=== PATIENT | female | born 1935 | race Caucasian/White ===

== ENCOUNTER 2022-03-24 17:29 | Observation (INO) | payer MEDICARE ==
[2022-03-24 18:20] LABS: Basophils % (A) 0 %; Eosinophils # (A) 0.1 k/uL (0-0.7); Eosinophils % (A) 1 %; HCT 43.4 % (34.0-46.0); HGB 15.3 gm/dL (11.4-16.0); Lymphocytes # (A) 3.9 k/uL (1.0-4.8); Lymphocytes % (A) 23 %; MCH 31.8 pg (25.0-35.0); MCHC 35.3 g/dL (31.0-37.0); MCV 90.1 fL (80.0-100.0); Mean Platelet Volume 7.6; Monocytes # (A) 0.4 k/uL (0-1.0); Monocytes % (A) 2 %; Neutrophils # (A) 11.9 k/uL (1.3-7.7); Neutrophils % (A) 72 %; Platelet Count 324 k/uL (150-450); RBC 4.82 m/uL (3.80-5.40); WBC 16.7 k/uL (3.8-10.6)
[2022-03-24 18:29] LABS: Albumin 4.1 g/dL (3.5-5.0); Calcium 9.5 mg/dL (8.4-10.2); Potassium 3.5 mmol/L (3.5-5.1); Total Bilirubin 0.7 mg/dL (0.2-1.3); Total Protein 6.4 g/dL (6.3-8.2)
--- NOTE | 2022-03-24 18:34 | XR ---
EXAMINATION TYPE: XR chest 2V DATE OF EXAM: 03/24/2022 COMPARISON: NONE HISTORY: Short of breath TECHNIQUE: 2 views FINDINGS: There is no heart failure nor confluent pneumonic infiltrate. Costophrenic angles are clear . There are no hilar masses. Thoracic aorta is atheromatous. IMPRESSION: No active cardiopulmonary disease. Normal heart.
[2022-03-24 19:03] VITALS: RESP 18
[2022-03-24] MEDS ORDERED: SODIUM CHLORIDE 0.9% 1,000 ML IV ONE (19:18)
--- NOTE | 2022-03-24 19:18 | ED ---
General Adult HPI - General Chief complaint: Shortness of Breath Stated complaint: pneumonia Time Seen by Provider: 03/24/22 17:30 Source: patient, RN notes reviewed, old records reviewed Mode of arrival: EMS Limitations: no limitations - History of Present Illness Initial comments: This is an 86-year-old female presents emergency Department complaining that she's had a cough for over a week. Patient states she's been on Augmentin and steroids and hasn't gotten any better. Patient states she still having a productive cough and she feels short of breath and extremely weak. Patient denies any chest pain or palpitations. Patient denies any lightheadedness or dizziness. Patient denies any abdominal pain patient denies nausea vomiting diarrhea. Patient denies any swelling to the legs or calf tenderness. - Related Data Home Medications Medication Instructions Recorded Confirmed Albuterol Sulfate [Albuterol 2 puff PO RT-QID 03/24/22 03/24/22 Sulfate Hfa] Ascorbic Acid [Vitamin C] 500 mg PO BID 03/24/22 03/24/22 Aspirin EC [Ecotrin Low Dose] 81 mg PO DAILY 03/24/22 03/24/22 Benazepril/Hydrochlorothiazide 1 tab PO DAILY 03/24/22 03/24/22 [Benazepril-Hctz 10-12.5 mg Tab] Cholecalciferol [Vitamin D3 (25 50 mcg PO DAILY 03/24/22 03/24/22 Mcg = 1000 Iu)] [place]-3/Dha/Epa/Fish Oil [Fish Oil 1 cap PO HS 03/24/22 03/24/22 1,000 mg Softgel] Simvastatin [Zocor] 40 mg PO HS 03/24/22 03/24/22 hydroCHLOROthiazide [Hydrodiuril] 25 mg PO DAILY 03/24/22 03/24/22 traZODone HCL [Desyrel] 50 mg PO HS 03/24/22 03/24/22 Allergies Allergy/AdvReac Type Severity Reaction Status Date / Time No Known Allergies Allergy Verified 03/24/22 19:00 Review of Systems ROS Statement: Those systems with pertinent positive or pertinent negative responses have been documented in the HPI. ROS Other: All systems not noted in ROS Statement are negative. Past Medical History Past Medical History: No Reported History History of Any Multi-Drug Resistant Organisms: None Reported Past Surgical History: Cholecystectomy Past Psychological History: No Psychological Hx Reported Smoking Status: Current every day smoker Past Alcohol Use History: Occasional Past Drug Use History: None Reported General Exam - General Exam Comments Initial Comments: GENERAL: Patient is well-developed and well-nourished. Patient is nontoxic and well-hydrated and is in mild distress. ENT: Neck is soft and supple. No significant lymphadenopathy is noted. Oropharynx is clear. Moist mucous membranes. Neck has full range of motion without eliciting any pain. EYES: The sclera were anicteric and conjunctiva were pink and moist. Extraocular movements were intact and pupils were equal round and reactive to light. Eyelids were unremarkable. PULMONARY: Unlabored respirations. Good breath sounds bilaterally. No audible rales rhonchi or wheezing was noted. CARDIOVASCULAR: There is a regular rate and rhythm without any murmurs gallops or rubs. ABDOMEN: Soft and nontender with normal bowel sounds. SKIN: Skin is clear with no lesions or rashes and otherwise unremarkable. NEUROLOGIC: Patient is alert and oriented x3. Cranial nerves II through XII are grossly intact. Motor and sensory are also intact. Normal speech, volume and content. Symmetrical smile. MUSCULOSKELETAL: Normal extremities with adequate strength and full range of motion. No lower extremity swelling or edema. No calf tenderness. LYMPHATICS: No significant lymphadenopathy is noted PSYCHIATRIC: Normal psychiatric evaluation. Limitations: no limitations Course Vital Signs 03/24/22 03/24/22 17:32 19:00 Temperature 97.4 F L Pulse Rate 88 86 Respiratory 20 18 Rate Blood Pressure 116/57 117/58 O2 Sat by Pulse 91 L 94 L Oximetry Medical Decision Making - Medical Decision Making I interpreted the chest x-ray. Chest x-ray showed no infiltrates or pleural effusions Patient's COVID came back positive. Patient was oxygenating at 91% on room air so I admitted the patient. I spoke with some physicians agreed to admit the patient admitted the patient wrote admitting orders. - Lab Data Result diagrams: 03/24/22 18:05 03/24/22 18:05 Lab Results 03/24/22 03/24/22 03/24/22 Range/Units 18:05 18:05 18:05 WBC 16.7 H (3.8-10.6) k/uL RBC 4.82 (3.80-5.40) m/uL Hgb 15.3 (11.4-16.0) gm/dL Hct 43.4 (34.0-46.0) % MCV 90.1 (80.0-100.0) fL MCH 31.8 (25.0-35.0) pg MCHC 35.3 (31.0-37.0) g/dL RDW 12.0 (11.5-15.5) % Plt Count 324 (150-450) k/uL MPV 7.6 Neutrophils % 72 % Lymphocytes % 23 % Monocytes % 2 % Eosinophils % 1 % Basophils % 0 % Neutrophils # 11.9 H (1.3-7.7) k/uL Lymphocytes # 3.9 (1.0-4.8) k/uL Monocytes # 0.4 (0-1.0) k/uL Eosinophils # 0.1 (0-0.7) k/uL Basophils # 0.0 (0-0.2) k/uL Sodium 132 L (137-145) mmol/L Potassium 3.5 (3.5-5.1) mmol/L Chloride 100 (98-107) mmol/L Carbon Dioxide 22 (22-30) mmol/L Anion Gap 10 mmol/L BUN 53 H (7-17) mg/dL Creatinine 1.35 H (0.52-1.04) mg/dL Est GFR (CKD-EPI)AfAm 41 (>60 ml/min/1.73 sqM) Est GFR (CKD-EPI)NonAf 36 (>60 ml/min/1.73 sqM) Glucose 138 H (74-99) mg/dL Plasma Lactic Acid Srinivasa 2.5 H* (0.7-2.0) mmol/L Calcium 9.5 (8.4-10.2) mg/dL Total Bilirubin 0.7 (0.2-1.3) mg/dL AST 29 (14-36) U/L ALT 31 (4-34) U/L Alkaline Phosphatase 60 (38-126) U/L Total Protein 6.4 (6.3-8.2) g/dL Albumin 4.1 (3.5-5.0) g/dL Coronavirus (PCR) (Not Detectd) 03/24/22 Range/Units 18:13 WBC (3.8-10.6) k/uL RBC (3.80-5.40) m/uL Hgb (11.4-16.0) gm/dL Hct (34.0-46.0) % MCV (80.0-100.0) fL MCH (25.0-35.0) pg MCHC (31.0-37.0) g/dL RDW (11.5-15.5) % Plt Count (150-450) k/uL MPV Neutrophils % % Lymphocytes % % Monocytes % % Eosinophils % % Basophils % % Neutrophils # (1.3-7.7) k/uL Lymphocytes # (1.0-4.8) k/uL Monocytes # (0-1.0) k/uL Eosinophils # (0-0.7) k/uL Basophils # (0-0.2) k/uL Sodium (137-145) mmol/L Potassium (3.5-5.1) mmol/L Chloride (98-107) mmol/L Carbon Dioxide (22-30) mmol/L Anion Gap mmol/L BUN (7-17) mg/dL Creatinine (0.52-1.04) mg/dL Est GFR (CKD-EPI)AfAm (>60 ml/min/1.73 sqM) Est GFR (CKD-EPI)NonAf (>60 ml/min/1.73 sqM) Glucose (74-99) mg/dL Plasma Lactic Acid Srinivasa (0.7-2.0) mmol/L Calcium (8.4-10.2) mg/dL Total Bilirubin (0.2-1.3) mg/dL AST (14-36) U/L ALT (4-34) U/L Alkaline Phosphatase (38-126) U/L Total Protein (6.3-8.2) g/dL Albumin (3.5-5.0) g/dL Coronavirus (PCR) Detected A (Not Detectd) Disposition Clinical Impression: COVID-19 Disposition: ADMITTED IP TO THIS HOSP Referrals: Hector Khalil MD [Primary Care Provider] - 1-2 days Time of Disposition: 19:18
[2022-03-24] MEDS ORDERED: dexAMETHasone 2 MG TAB PO STA (19:19)
--- NOTE | 2022-03-25 00:33 | P.HPIM ---
History of Present Illness H&P Date: 03/24/22 The patient is an 86-year-old female with a PMH of hypertension and hyperlipidemia who had presented to the emergency room with complaints of cough. The patient was very confused at the time of interview, oriented only to self, due to which the history was obtained from the chart and from ED physician. The patient had reportedly been on Augmentin and steroids for a productive cough and shortness of breath which had not improved her symptoms. She however had denied experiencing chest discomfort, palpitations, lightheadedness, or dizziness. She also denied lower extremity swelling or pain. At time of interview, she reported feeling okay and had no active complaints Chest x-ray in the emergency room was unremarkable. Laboratory evaluation was remarkable for leukocytosis of 16.7, BUN 53, creatinine 1.35, lactic acid 2.5, and duron virus PCR positive. Review of systems: Unable to complete due to mental status. Physical examination: General: non toxic, no distress, appears at stated age, overweight Derm: no unusual rashes/lesions, warm Head: atraumatic, normocephalic, symmetric Eyes: EOMI, no lid lag, anicteric sclera, pupils equal round reactive to light ENT: Nose and ears atraumatic Neck: No cervical lymphadenopathy, trachea midline, supple Mouth: no lip lesion, mucus membranes moist Cardiovascular: S1S2 reg, no murmur, positive dorsalis pedis pulse bilateral, no edema Lungs: CTA bilateral, no rhonchi, no rales, no accessory muscle use Abdominal: soft, nontender to palpation, no guarding Ext: muscle strength 4 out of 5 in all 4 extremities grossly, no gross muscle atrophy, no contractures, Neuro: CN II-XI grossly intact, no gross focal neuro deficits Psych: Oriented only to self, appropriate affect believes she is in her apartment Assessment/plan Acute hypoxic respiratory failure, likely secondary to COVID 19 pneumonia -Continue the Decadron -Zinc, vitamin C, vitamin D -Pulmonary consult -Follow up blood cultures -Gentle IV hydration -Follow up pro calcitonin levels Kidney injury, acute versus chronic -Continue gentle IV hydration -Hold patient's antihypertensives Lactic acidosis -Monitor for resolution Chronic conditions: Hypertension, hyperlipidemia -Continue with home meds DVT prophylaxis -Heparin subcu The patient is admitted with an anticipated less than 2 midnight stay for evaluation of COVID CODE STATUS: Full Code Discussed with: Patient Anticipated discharge date: in am Anticipated discharge place: Home Past Medical History Past Medical History: No Reported History History of Any Multi-Drug Resistant Organisms: None Reported Past Surgical History: Cholecystectomy Past Psychological History: No Psychological Hx Reported Smoking Status: Current every day smoker Past Alcohol Use History: Occasional Past Drug Use History: None Reported - Past Family History Father Family Medical History: Unable to Obtain (Due to mental status) Medications and Allergies Home Medications Medication Instructions Recorded Confirmed Type Albuterol Sulfate [Albuterol 2 puff PO RT-QID 03/24/22 03/24/22 History Sulfate Hfa] Ascorbic Acid [Vitamin C] 500 mg PO BID 03/24/22 03/24/22 History Aspirin EC [Ecotrin Low Dose] 81 mg PO DAILY 03/24/22 03/24/22 History Benazepril/Hydrochlorothiazide 1 tab PO DAILY 03/24/22 03/24/22 History [Benazepril-Hctz 10-12.5 mg Tab] Cholecalciferol [Vitamin D3 (25 50 mcg PO DAILY 03/24/22 03/24/22 History Mcg = 1000 Iu)] [place]-3/Dha/Epa/Fish Oil [Fish Oil 1 cap PO HS 03/24/22 03/24/22 History 1,000 mg Softgel] Simvastatin [Zocor] 40 mg PO HS 03/24/22 03/24/22 History hydroCHLOROthiazide [Hydrodiuril] 25 mg PO DAILY 03/24/22 03/24/22 History traZODone HCL [Desyrel] 50 mg PO HS 03/24/22 03/24/22 History Allergies Allergy/AdvReac Type Severity Reaction Status Date / Time No Known Allergies Allergy Verified 03/24/22 19:00 Physical Exam Vitals: Vital Signs Temp Pulse Pulse Resp BP BP Pulse Ox 03/24/22 20:49 98.8 F 83 18 123/73 94 L 03/24/22 19:00 86 18 117/58 94 L 03/24/22 17:32 97.4 F L 88 20 116/57 91 L Intake and Output 03/24/22 03/24/22 03/24/22 06:59 14:59 22:59 Other: Weight 89.358 kg Results CBC & Chem 7: 03/24/22 18:05 03/24/22 18:05 Labs: Abnormal Lab Results - Last 24 Hours (Table) 03/24/22 03/24/22 03/24/22 Range/Units 18:05 18:05 18:05 WBC 16.7 H (3.8-10.6) k/uL Neutrophils # 11.9 H (1.3-7.7) k/uL Sodium 132 L (137-145) mmol/L BUN 53 H (7-17) mg/dL Creatinine 1.35 H (0.52-1.04) mg/dL Glucose 138 H (74-99) mg/dL Plasma Lactic Acid Srinivasa 2.5 H* (0.7-2.0) mmol/L Coronavirus (PCR) (Not Detectd) 03/24/22 Range/Units 18:13 WBC (3.8-10.6) k/uL Neutrophils # (1.3-7.7) k/uL Sodium (137-145) mmol/L BUN (7-17) mg/dL Creatinine (0.52-1.04) mg/dL Glucose (74-99) mg/dL Plasma Lactic Acid Srinivasa (0.7-2.0) mmol/L Coronavirus (PCR) Detected A (Not Detectd)
[2022-03-25 07:56] VITALS: BP 111/68; PULSE 66; TEMP 95.9
[2022-03-25] MEDS ORDERED: HEPARIN SODIUM,PORCINE/PF 5,000 UNIT/0.5 ML SYRINGE SQ SCH (08:00)
[2022-03-25] MEDS ORDERED: ZINC SULFATE 220 MG CAP PO SCH (09:00)
[2022-03-25] MEDS ORDERED: ASCORBIC ACID 500 MG TAB PO SCH (09:00)
[2022-03-25] MEDS ORDERED: dexAMETHasone 2 MG TAB PO SCH (09:00)
[2022-03-25] MEDS ORDERED: ASPIRIN 81 MG PO SCH (09:00)
[2022-03-25] MEDS ORDERED: CHOLECALCIFEROL 125 MCG (5000 IU) TABLET PO SCH (09:00)
[2022-03-25 10:59] LABS: HCT 39.3 % (37.2-46.3); HGB 14.2 g/dL (12.0-15.0); MCH 31.7 pg (27.0-32.0); MCHC 36.1 g/dL (32.0-37.0); MCV 87.7 fL (80.0-97.0); Mean Platelet Volume 9.9 fL (9.5-12.2); NRBC Per 100 WBC 0 /100 WBCS (0.0-0.0); Platelet Count 280 X 10*3/uL (140-440); RBC 4.48 X 10*6/uL (4.10-5.20); RDW 11.9 % (11.5-14.5); WBC 10.93 X 10*3/uL (4.50-10.00)
[2022-03-25 11:22] LABS: African American GFR (CKD) 59.1 (60.0-200.0); Anion Gap 11.6 mmol/L (10.00-18.00); BUN/Creat Ratio 41.9 Ratio (12.00-20.00); Blood Urea Nitrogen 41.9 mg/dL (9.0-27.0); Calcium 9.4 mg/dL (8.7-10.3); Carbon Dioxide 20.4 mmol/L (20.0-27.5)
--- NOTE | 2022-03-25 12:04 | P.CNPUL ---
History of Present Illness Consult date: 03/25/22 Requesting physician: Mey Gonzalez Reason for consult: cough Chief complaint: Cough, congestion History of present illness: This is a very pleasant 86-year-old female patient who is a poor historian. She was brought into the emergency room yesterday with ongoing issues with cough. She was being treated with Augmentin and steroids in the outpatient setting without much improvement. She is feeling short of breath and weak. She has a history of hypertension, vitamin D deficiency, hyperlipidemia, chronic tobacco dependence. Chest x-ray shows no acute pulmonary process. White count 16.7. Hemoglobin 15.3. Sodium 132. Potassium 3.5. BUN 53. Creatinine 1.35. Lactic acid 2.5. Chronic virus by PCR positive. She is seen today in consultation on the regular medical floor. She is currently sitting up in bed. Awake and alert. Confused to time and place. She is maintaining good O2 saturations in the mid 90s on room air. She's been afebrile. Hemodynamically stable. She d oes have crackles in the bilateral bases. She was initiated on Decadron, vitamin supplements, normal saline at 75 ML's per hour. Follow-up lab work reveals a white count of 10.9. BUN of 42. Creatinine 1.0. Lactic acid 1.1. Review of Systems ROS unobtainable: due to mental status Past Medical History Past Medical History: No Reported History History of Any Multi-Drug Resistant Organisms: None Reported Past Surgical History: Cholecystectomy Past Psychological History: No Psychological Hx Reported Smoking Status: Current every day smoker Past Alcohol Use History: Occasional Past Drug Use History: None Reported - Past Family History Father Family Medical History: Unable to Obtain (Due to mental status) Medications and Allergies Home Medications Medication Instructions Recorded Confirmed Type Albuterol Sulfate [Albuterol 2 puff PO RT-QID 03/24/22 03/24/22 History Sulfate Hfa] Ascorbic Acid [Vitamin C] 500 mg PO BID 03/24/22 03/24/22 History Aspirin EC [Ecotrin Low Dose] 81 mg PO DAILY 03/24/22 03/24/22 History Benazepril/Hydrochlorothiazide 1 tab PO DAILY 03/24/22 03/24/22 History [Benazepril-Hctz 10-12.5 mg Tab] Cholecalciferol [Vitamin D3 (25 50 mcg PO DAILY 03/24/22 03/24/22 History Mcg = 1000 Iu)] [place]-3/Dha/Epa/Fish Oil [Fish Oil 1 cap PO HS 03/24/22 03/24/22 History 1,000 mg Softgel] Simvastatin [Zocor] 40 mg PO HS 03/24/22 03/24/22 History traZODone HCL [Desyrel] 50 mg PO HS 03/24/22 03/24/22 History Benzonatate [Tessalon Perles] 100 mg PO TID PRN #30 capsule 03/25/22 Rx Zinc Sulfate [Orazinc] 220 mg PO DAILY cap 03/25/22 Rx Allergies Allergy/AdvReac Type Severity Reaction Status Date / Time No Known Allergies Allergy Verified 03/24/22 19:00 Physical Exam Vitals: Vital Signs Temp Pulse Pulse Resp BP BP BP 03/25/22 07:00 95.9 F L 66 18 111/68 03/25/22 04:34 97.7 F 82 18 138/80 03/24/22 20:49 98.8 F 83 18 123/73 03/24/22 19:00 86 18 117/58 03/24/22 17:32 97.4 F L 88 20 116/57 Pulse Ox 03/25/22 07:00 96 03/25/22 04:34 96 03/24/22 20:49 94 L 03/24/22 19:00 94 L 03/24/22 17:32 91 L Intake and Output 03/24/22 03/25/22 03/25/22 22:59 06:59 14:59 Other: Voiding Method Toilet Toilet # Voids 1 1 # Bowel Movements 1 Weight 89.358 kg GENERAL EXAM: Alert, confused, poor historian, 86-year-old female, on room air, comfortable in no apparent distress. HEAD: Normocephalic. EYES: Normal reaction of pupils, equal size. NOSE: Clear with pink turbinates. THROAT: No erythema or exudates. NECK: No masses, no JVD. CHEST: No chest wall deformity. LUNGS: Equal air entry with crackles in the posterior bases. CVS: S1 and S2 normal with no audible murmur, regular rhythm. ABDOMEN: No hepatosplenomegaly, normal bowel sounds, no guarding or rigidity. SPINE: No scoliosis or deformity SKIN: No rashes CENTRAL NERVOUS SYSTEM: No focal deficits, tone is normal in all 4 extremities. EXTREMITIES: There is no peripheral edema. No clubbing, no cyanosis. Peripheral pulses are intact. Results - Laboratory Findings CBC and BMP: 03/25/22 06:36 03/25/22 06:36 Abnormal lab findings: Abnormal Labs 03/24/22 03/24/22 03/24/22 18:05 18:05 18:05 WBC 16.7 H Neutrophils # 11.9 H Sodium 132 L BUN 53 H Creatinine 1.35 H Est GFR (CKD-EPI)AfAm Est GFR (CKD-EPI)NonAf BUN/Creatinine Ratio Glucose 138 H Plasma Lactic Acid Srinivasa 2.5 H* Coronavirus (PCR) 03/24/22 03/25/22 03/25/22 18:13 06:36 06:36 WBC 10.93 H Neutrophils # Sodium 134 L BUN 41.9 H Creatinine Est GFR (CKD-EPI)AfAm 59.1 L Est GFR (CKD-EPI)NonAf 51.0 L BUN/Creatinine Ratio 41.90 H Glucose 149 H Plasma Lactic Acid Srinivasa Coronavirus (PCR) Detected A - Diagnostic Findings Chest x-ray: image reviewed Assessment and Plan Assessment: Dyspnea with cough and congestion, chest x-ray shows no acute pulmonary process, pro-calcitonin pending. Failed outpatient treatment COVID-19 infection with no evidence of COVID-19 pneumonia Acute renal failure secondary to dehydration secondary to above Poor historian History of hyperlipidemia History of hypertension Plan: The patient was seen and evaluated Chest x-ray, labs and medications reviewed Check a pro-calcitonin Vitamin supplements Discontinue Decadron Heparin for DVT prophylaxis Stable and on room air Cleared for discharge from the pulmonary standpoint I have personally seen and examined the patient, performed the documentation and the assessment and plan as written. Number of minutes spent on the visit: 20.
--- NOTE | 2022-03-25 14:24 | P.DS ---
Providers Date of admission: 03/24/22 19:18 Expected date of discharge: 03/25/22 Attending physician: Mey Gonzalez MD Consults: 03/25/22 00:31 Consult Physician Urgent Consulting Provider: Farshad Chi Consult Reason/Comments: COVID Do you want consulting provider notified?: Yes Primary care physician: Hector Khalil MD Hospital Course: Discharge Diagnosis: Acute COVID-19 Acute kidney injury Lactic acidosis Hypertension Dyslipidemia Leukocytosis Hospital Course: The patient is an 86-year-old female with hypertension, dementia, and hyperlipidemia who was sent to the emergency department from [facility] emergency room with complaints of cough. In the ER she underwent an extensive evaluation. Vital signs on arrival were normal. Chest x-ray in the emergency room was unremarkable. Laboratory evaluation was remarkable for leukocytosis of 16.7, BUN 53, creatinine 1.35, lactic acid 2.5, and duron virus PCR positive. Her diuretics were held. She was started on IV fluids. She was placed in observation for further monitoring. Her oxygenation status remained stable on the morning of . Her daughter was contacted and stated her mother had unknown cold exposure 2 weeks ago and had a [place] type symptoms for the last 7 days. We discussed the risks and benefits of Paxlovid therapy and due to possible duration symptoms they have elected to forego therpay. She did have some infiltrate on her chest x-ray one week ago but this has resolved. Daughter feels comfortable taking her home. She has 24 7 care at the [facility]. We discussed starting Zinc and Tessalon for her cough. They're in agreement and patient was subsequently discharged home. She'll follow up with Suraj or Dr. Cheema early next week. Patient seen and examined at bedside. She is with out complaints, no shortness of breath, no nuaseas, no vomitnig. Vital signs reviewed and stable. General: nontoxic, no distress, appears at stated age Derm: warm, dry Head: atraumatic, normocephalic, symmetric Eyes: EOMI, no lid lag, anicteric sclera Mouth: no lip lesion, mucus membranes moist Cardiovascular: S1S2 reg, no murmur, positive posterior tibial pulse bilateral, Lungs: CTA bilateral, no rhonchi, no rales , no accessory muscle use Abdominal: soft, nontender to palpation, no guarding, no appreciable organomegaly Ext: no gross muscle atrophy, no edema, no contractures Neuro: CN II-XI grossly intact, no focal neuro deficits Psych: Alert, oriented to self, appropriate affect A total of 37 minutes of time were spent preparing this complex discharge summary. Patient was discharged on 03/25/22. Plan - Discharge Summary New Discharge Prescriptions: New Zinc Sulfate [Orazinc] 220 mg PO DAILY cap Benzonatate [Tessalon Perles] 100 mg PO TID PRN #30 capsule PRN Reason: Cough Continue traZODone HCL [Desyrel] 50 mg PO HS Aspirin EC [Ecotrin Low Dose] 81 mg PO DAILY Ascorbic Acid [Vitamin C] 500 mg PO BID Cholecalciferol [Vitamin D3 (25 Mcg = 1000 Iu)] 50 mcg PO DAILY Benazepril/Hydrochlorothiazide [Benazepril-Hctz 10-12.5 mg Tab] 1 tab PO DAILY [place]-3/Dha/Epa/Fish Oil [Fish Oil 1,000 mg Softgel] 1 cap PO HS Albuterol Sulfate [Albuterol Sulfate Hfa] 2 puff PO RT-QID Simvastatin [Zocor] 40 mg PO HS Discontinued hydroCHLOROthiazide [Hydrodiuril] 25 mg PO DAILY Discharge Medication List Albuterol Sulfate [Albuterol Sulfate Hfa] 2 puff PO RT-QID 03/24/22 [History] Ascorbic Acid [Vitamin C] 500 mg PO BID 03/24/22 [History] Aspirin EC [Ecotrin Low Dose] 81 mg PO DAILY 03/24/22 [History] Benazepril/Hydrochlorothiazide [Benazepril-Hctz 10-12.5 mg Tab] 1 tab PO DAILY 03/24/22 [History] Cholecalciferol [Vitamin D3 (25 Mcg = 1000 Iu)] 50 mcg PO DAILY 03/24/22 [History] [place]-3/Dha/Epa/Fish Oil [Fish Oil 1,000 mg Softgel] 1 cap PO HS 03/24/22 [History] Simvastatin [Zocor] 40 mg PO HS 03/24/22 [History] traZODone HCL [Desyrel] 50 mg PO HS 03/24/22 [History] Benzonatate [Tessalon Perles] 100 mg PO TID PRN #30 capsule 03/25/22 [Rx] Zinc Sulfate [Orazinc] 220 mg PO DAILY cap 03/25/22 [Rx] Follow up Appointment(s)/Referral(s): Erich Cheema MD [REFERRING] - 1 Week Patient Instructions/Handouts: COVID-19 (Coronavirus Disease 2019) (DC) Activity/Diet/Wound Care/Special Instructions: Activity: as tolerated Diet: regular Wound Care: [] Special Instructions: [] Discharge Disposition: HOME SELF-CARE
[2022-03-25] MEDS ORDERED: ATORVASTATIN 20 MG TAB PO SCH (21:00)
[2022-03-25] MEDS ORDERED: traZODone HCL 50 MG TAB PO SCH (21:00)
== END 2022-03-25 12:10 | disposition home or self-care (01) ==
LOC: EC 17:29 → 6NMEDSUR 19:18
PROVIDERS: ADMIT Family Medicine; ATTEND Family Medicine
DX: U07.1 COVID-19 (principal); J96.01 Acute respiratory failure with hypoxia; F03.90 Unspecified dementia, unspecified severity, without behavioral disturbance, psychotic disturbance, mood disturbance, and anxiety; E86.0 Dehydration; N17.9 Acute kidney failure, unspecified; I70.0 Atherosclerosis of aorta; I10 Essential (primary) hypertension; E78.5 Hyperlipidemia, unspecified; E87.20 Acidosis, unspecified; E55.9 Vitamin D deficiency, unspecified; F17.200 Nicotine dependence, unspecified, uncomplicated; D72.829 Elevated white blood cell count, unspecified; Z79.899 Other long term (current) drug therapy; Z79.82 Long term (current) use of aspirin; Z90.49 Acquired absence of other specified parts of digestive tract
CPT/HCPCS: 96372; 99285; 36415; 80053; 80048; 83605; 85025; 85027; 87040; 84145; 87635; 71046; G0378 ×2; J8540; J1644

== ENCOUNTER 2024-01-12 20:31 | Observation (INO) | payer MEDICARE ==
--- NOTE | 2024-01-12 22:10 | CT ---
EXAMINATION TYPE: CT brain wo con DATE OF EXAM: 01/12/2024 COMPARISON: None HISTORY: 88-year-old female with TIA, weakness TECHNIQUE: Examination was done in axial plane without intravenous contrast. Coronal and sagittal r econstructions performed. CT DLP: 1138.9 mGycm Automated exposure control for dose reduction was used. FINDINGS: There is no evidence of acute intracranial hemorrhage, acute ischemic changes, mass, mass-effect, or extra-axial fluid collection. There is no effacement of cerebral sulci or basal subarachnoid cister ns. There is no hydrocephalus. There is no midline shift. [place]-white matter distinction is preserv ed. Extensive patient motion limiting the evaluation. There is moderate generalized supratentorial volum e loss. 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 Mild ventricular prominence likely due to central cerebral atrophy. Paranasal sinuses and mastoid air cells are pneumatized. IMPRESSION: 1. Motion degraded exam. 2. Mild to moderate generalized atrophy. 3. 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 4. No definite acute intracranial abnormality seen. If symptoms persist, follow-up CT or MRI.
--- NOTE | 2024-01-12 22:16 | ED ---
General Adult HPI - General Chief complaint: Neuro Symptoms/Deficit Stated complaint: HTN Time Seen by Provider: 01/12/24 20:48 Source: patient, family, EMS Mode of arrival: EMS Limitations: no limitations - History of Present Illness Initial comments: Dictation was produced using [employer] dictation software. please excuse any grammatical, word or spelling errors. Chief Complaint: 88-year-old female presents emergency department with TIA History of Present Illness: Patient is 88-year-old female has history of stroke. She has also history of dementia. She was at a dinner libertarian with her family when all of a sudden she started to be unresponsive breathing sonorously with a facial droop. She apparently was like this for 5 minutes. She was rushed to the emergency department. Patient wants to regain consciousness had episode of vomiting and returned back to baseline. Patient does not recall the events that transpired. She does have a history dementia. Family states that patient is very forgetful. Patient Nu[place] any symptoms at this time. The ROS documented in this emergency department record has been reviewed and confirmed by me. Those systems with pertinent positive or negative responses have been documented in the HPI. All other systems are other negative and/or noncontributory. - Related Data Home Medications Medication Instructions Recorded Confirmed Albuterol Sulfate [Albuterol 2 puff PO RT-QID 03/24/22 03/24/22 Sulfate Hfa] Ascorbic Acid [Vitamin C] 500 mg PO BID 03/24/22 03/24/22 Aspirin EC [Ecotrin Low Dose] 81 mg PO DAILY 03/24/22 03/24/22 Benazepril/Hydrochlorothiazide 1 tab PO DAILY 03/24/22 03/24/22 [Benazepril-Hctz 10-12.5 mg Tab] Cholecalciferol [Vitamin D3 (25 50 mcg PO DAILY 03/24/22 03/24/22 Mcg = 1000 Iu)] [place]-3/Dha/Epa/Fish Oil [Fish Oil 1 cap PO HS 03/24/22 03/24/22 1,000 mg Softgel] Simvastatin [Zocor] 40 mg PO HS 03/24/22 03/24/22 traZODone HCL [Desyrel] 50 mg PO HS 03/24/22 03/24/22 Previous Rx's Medication Instructions Recorded Benzonatate [Tessalon Perles] 100 mg PO TID PRN #30 capsule 03/25/22 Zinc Sulfate [Orazinc] 220 mg PO DAILY cap 03/25/22 Allergies Allergy/AdvReac Type Severity Reaction Status Date / Time No Known Allergies Allergy Verified 01/12/24 20:39 Review of Systems ROS Statement: Those systems with pertinent positive or pertinent negative responses have been documented in the HPI. ROS Other: All systems not noted in ROS Statement are negative. Past Medical History Past Medical History: COPD, CVA/TIA, Dementia, Hypertension History of Any Multi-Drug Resistant Organisms: None Reported Past Surgical History: Cholecystectomy, Orthopedic Surgery Additional Past Surgical History / Comment(s): lumbar Past Psychological History: No Psychological Hx Reported Smoking Status: Current every day smoker Past Alcohol Use History: Occasional Past Drug Use History: None Reported - Past Family History Father Family Medical History: Unable to Obtain (Due to mental status) General Exam - General Exam Comments Initial Comments: PHYSICAL EXAM: General Impression: Alert and oriented x3/4, not in acute distress HEENT: Normocephalic atraumatic, extra-ocular movements intact, pupils equal and reactive to light bilaterally, mucous membranes moist. Cardiovascular: Heart regular rate and rhythm Chest: Able to complete full sentences, no retractions, no tachypnea Abdomen: abdomen soft, non-tender, non-distended, no organomegaly Musculoskeletal: Pulses present and equal in all extremities, no peripheral yoly ma Motor: no focal deficits noted Neurological: CN II-XII grossly intact, no focal motor or sensory deficits noted Skin: Intact with no visualized rashes Psych: Normal affect and mood Limitations: no limitations Course Vital Signs 01/12/24 01/12/24 20:32 21:38 Temperature 97.5 F L Pulse Rate 59 L 97 Respiratory 18 18 Rate Blood Pressure 142/40 138/78 O2 Sat by Pulse 95 96 Oximetry EKG Findings - EKG Comments: EKG Findings:: My EKG interpretation: Ventricular rate 107, sinus tachycardia, right branch block. 05/17/1933, QRS 116, QTc 406. No [place] prolongation, no QTC prolongation, no ST or T-wave changes noted. Overall, this EKG is unremarkable Medical Decision Making - Medical Decision Making Was pt. sent in by a medical professional or institution (, PA, STOPPER SETTER, urgent care, hospital, or [facility]...) When possible be specific @ -No Did you speak to anyone other than the patient for history (EMS, parent, family, police, friend...)? What history was obtained from this source @ -family as described above Did you review nursing and triage notes (agree or disagree)? Why? @ -I reviewed and agree with nursing and triage notes Were old charts reviewed (outside hosp., previous admission, EMS record, old EKG, old radiological studies, urgent care reports/EKG's, [facility] records)? Report findings @ -No old charts were reviewed Differential Diagnosis (chest pain, altered mental status, abdominal pain women, abdominal pain men, vaginal bleeding, musculoskeletal, weakness, fever, dyspnea, syncope, headache, dizziness, GI bleed, back pain, seizure, CVA, palpatations, mental health)? @ - Differential CVA: Ischemic stroke, hemorrhagic stroke, brain tumor, atypical migraine, Wernicke's encephalopathy, seizure, multiple sclerosis, meningitis, encephalitis, h ypoglycemia, Guillain-Jarvis, electrolytes disturbance, myasthenia gravis.... This is not meant to be an all-inclusive list EKG interpreted by me (3pts min.). @ -See above X-rays interpreted by me (1pt min.). @ -None done CT interpreted by me (1pt min.). @ -CT brain shows no acute processes. Evidence of old infarct U/S interpreted by me (1pt. min.). @ -None done What testing was considered but not performed or refused? (CT, X-rays, U/S, labs)? Why? @ -None What meds were considered but not given or refused? Why? @ -None Was smoking cessation discussed for >3mins.? @ -No Were there social determinants of health that impacted care today? How? (Homelessness, low income, unemployed, alcoholism, drug addiction, transportation, low edu. Level, literacy, decrease access to med. care, correction, rehab)? @ -No Was there de-escalation of care discussed even if they declined (Discuss DNR or withdrawal of care, Hospice)? DNR status @ -No What co-morbidities impacted this encounter? (DM, HTN, Smoking, COPD, CAD, Cancer, CVA, ARF, Chemo, Hep., AIDS, mental health diagnosis, sleep apnea, morbid obesity)? @ -None Was patient admitted / discharged? Hospital course, mention meds given and route , prescriptions, significant lab abnormalities, going to OR and other pertinent info. @ -88-year-old female presents emergency department for episode of suspected seizure versus syncope versus TIA signs upon arrival are within acceptable limits. CT scan shows no acute processes. Patient at baseline at the bedside. Patient be admitted consultation to neurology. Did you discuss the management of the patient with other professionals (professionals i.e. , PA, STOPPER SETTER, lab, RT, psych nurse, social organization professor, insurance claims assistant, teacher, fire prevention officer, vocational case manager)? Give summary @ -case discussed with Dr. Santiago who is agreeable for admission. Was critical care preformed (if so, how long)? @ -No Undiagnosed new problem with uncertain prognosis? @ -No Drug Therapy requiring intensive monitoring for toxicity (Heparin, Nitro, Insulin, Cardizem)? @ -No Were any procedures done? @ -No Diagnosis/symptom? Acute, or Chronic, or Acute on Chronic? Uncomplicated (without systemic symptoms) or Complicated (systemic symptoms)? @ -TIA event Side effects of treatment? @ -No Exacerbation, Progression, or Severe Exacerbation? @ -No Poses a threat to life or bodily function? How? (Chest pain, [place], [place], pneumonia, PE, COPD, DKA, ARF, appy, cholecystitis, CVA, Diverticulitis, Homicidal, Suicidal, threat to staff... and all critical care pts) @ -yes - Lab Data Result diagrams: 01/12/24 22:35 01/12/24 22:35 Lab Results 01/12/24 01/12/24 Range/Units 22:35 22:35 WBC 10.0 (3.8-10.6) k/uL RBC 4.33 (3.80-5.40) m/uL Hgb 13.9 (11.4-16.0) gm/dL Hct 40.5 (34.0-46.0) % MCV 93.6 (80.0-100.0) fL MCH 32.2 (25.0-35.0) pg MCHC 34.4 (31.0-37.0) g/dL RDW 13.7 (11.5-15.5) % Plt Count 187 (150-450) k/uL MPV 7.4 Neutrophils % 68 % Lymphocytes % 26 % Monocytes % 3 % Eosinophils % 0 % Basophils % 1 % Neutrophils # 6.8 (1.3-7.7) k/uL Lymphocytes # 2.6 (1.0-4.8) k/uL Monocytes # 0.3 (0-1.0) k/uL Eosinophils # 0.0 (0-0.7) k/uL Basophils # 0.1 (0-0.2) k/uL Sodium 136 L (137-145) mmol/L Potassium 4.0 (3.5-5.1) mmol/L Chloride 103 (98-107) mmol/L Carbon Dioxide 27 (22-30) mmol/L Anion Gap 6 mmol/L BUN 23 H (7-17) mg/dL Creatinine 1.53 H (0.52-1.04) mg/dL Est GFR (CKD-EPI)AfAm 35 (>60 ml/min/1.73 sqM) Est GFR (CKD-EPI)NonAf 30 (>60 ml/min/1.73 sqM) Glucose 119 H (74-99) mg/dL Calcium 9.7 (8.4-10.2) mg/dL Magnesium 1.7 (1.6-2.3) mg/dL Total Bilirubin 0.5 (0.2-1.3) mg/dL AST 25 (14-36) U/L ALT 19 (4-34) U/L Alkaline Phosphatase 71 (38-126) U/L Total Protein 6.6 (6.3-8.2) g/dL Albumin 4.1 (3.5-5.0) g/dL Disposition Clinical Impression: Syncope Disposition: ADMITTED IP TO THIS HOSP Condition: Fair Referrals: Hector Khalil MD [Primary Care Provider] - 1-2 days Decision Time: 23:20
[2024-01-12 22:59] LABS: Basophils # (A) 0.1 k/uL (0-0.2); Basophils % (A) 1 %; Eosinophils % (A) 0 %; HCT 40.5 % (34.0-46.0); HGB 13.9 gm/dL (11.4-16.0); Lymphocytes # (A) 2.6 k/uL (1.0-4.8); Lymphocytes % (A) 26 %; MCH 32.2 pg (25.0-35.0); MCHC 34.4 g/dL (31.0-37.0); MCV 93.6 fL (80.0-100.0); Mean Platelet Volume 7.4; Monocytes # (A) 0.3 k/uL (0-1.0); Monocytes % (A) 3 %; Neutrophils # (A) 6.8 k/uL (1.3-7.7); Neutrophils % (A) 68 %; Platelet Count 187 k/uL (150-450); RBC 4.33 m/uL (3.80-5.40); RDW 13.7 % (11.5-15.5)
[2024-01-12 23:15] LABS: ALT 19 U/L (4-34); AST 25 U/L (14-36); African American GFR (CKD) 35 (>60 ml/min/1.73 sqM); Albumin 4.1 g/dL (3.5-5.0); Alkaline Phosphatase 71 U/L (38-126); Anion Gap 6 mmol/L; Blood Urea Nitrogen 23 mg/dL (7-17); Calcium 9.7 mg/dL (8.4-10.2); Carbon Dioxide 27 mmol/L (22-30); Chloride 103 mmol/L (98-107); Glucose 119 mg/dL (74-99); Magnesium 1.7 mg/dL (1.6-2.3); Non-African American GFR(CKD) 30 (>60 ml/min/1.73 sqM); Sodium 136 mmol/L (137-145); Total Bilirubin 0.5 mg/dL (0.2-1.3); Total Protein 6.6 g/dL (6.3-8.2)
[2024-01-12] MEDS ORDERED: NALOXONE 0.4 MG/ML 1 ML VIAL IV PRN (23:17)
[2024-01-12 23:46] LABS: INR 0.9 (<1.2); Partial Thromboplastin Time 23.6 sec (22.0-30.0); Prothrombin Time 10.1 sec (10.0-12.5)
--- NOTE | 2024-01-13 01:57 | P.HPIM ---
History of Present Illness H&P Date: 01/13/24 Patient is a 88-year-old female with a PMH of dementia, resident of [facility], with history of CVAs, COPD, hypertension, and hyperlipidemia who was brought to the emergency room by family members after an episode of unresponsiveness. The history is obtained by the patient's daughters at the bedside who are also serving as the patient's primary caregiver. They report that the patient was sitting with them at the dinner table earlier tonight when she suddenly became unresponsive. Her eyes were open although she was not responding to any stimuli and was noted to have a right-sided facial droop. The patient gradually became more responsive after 5 minutes and had essentially returned to her baseline over the next few hours, especially at the time of interview. The daughter reports that this is in line with her prior episodes of CVA where she would become catatonic and unresponsive. There was no reports of shaking movements, urinary incontinence, foaming at the mouth, or tongue biting. The patient did appear to be fatigued after regaining consciousness. The patient at the time of interview had no active complaints and reported feeling well. Denied experiencing weakness, numbness, tingling, headaches, visual disturbances. Also denied chest discomfort, shortness breath, fever, chills, cough, nausea, vomiting, abdominal pain, diarrhea. CT brain in the emergency room revealed findings of an old right MCA infarct with encephalomalacia with no acute intracranial abnormalities noted. Laboratory evaluation revealed BUN of 23 with creatinine 1.53 (previously 1.0 on 03/25/2022), and sodium 136. ED documentation reviewed and case discussed with ED provider. Review of systems: Pertinent positives and negatives as discussed in HPI, a complete review of systems was performed and all other systems are negative. Physical examination: Vital signs reviewed General: non toxic, no distress, appears at stated age, normal weight Derm: no unusual rashes/lesions, warm Head: atraumatic, normocephalic, symmetric Eyes: EOMI, no lid lag, anicteric sclera, pupils equal round reactive to light ENT: Nose and ears atraumatic Neck: No cervical lymphadenopathy, trachea midline, supple Mouth: no lip lesion, mucus membranes moist Cardiovascular: S1S2 reg, no murmur, positive dorsalis pedis pulse bilateral, no edema Lungs: CTA bilateral, no rhonchi, no rales, no accessory muscle use Abdominal: soft, nontender to palpation, no guarding Ext: muscle strength 5 out of 5 in all 4 extremities grossly, no gross muscle atrophy, no contractures, Neuro: CN II-XI grossly intact, no gross focal neuro deficits Psych: Alert, oriented only to person and place, not oriented to time Assessment: Episode of unresponsiveness with right facial droop, TIA versus less likely seizure Kidney injury, acute versus chronic Chronic conditions: COPD, hypertension, hyperlipidemia Imaging: CT brain in the emergency room revealed findings of an old right MCA infarct with encephalomalacia with no acute intracranial abnormalities noted. Data Review: Laboratory evaluation revealed BUN of 23 with creatinine 1.53 (previously 1.0 on 03/25/2022), and sodium 136. Plan: Neurology consulted campus monitor Obtain echocardiogram Continue with aspirin and statin Fall precautions Neurochecks PT and speech consult Monitor BMP Resume home medications once reconciled DVT prophylaxis: Lovenox subcu The patient is admitted with an anticipated fewer than 2 midnight stay for evaluation of unresponsiveness CODE STATUS: Full Code Discussed with: Patient Anticipated discharge place: [facility] Past Medical History Past Medical History: COPD, CVA/TIA, Dementia, Hypertension History of Any Multi-Drug Resistant Organisms: None Reported Past Surgical History: Cholecystectomy, Orthopedic Surgery Additional Past Surgical History / Comment(s): lumbar Past Psychological History: No Psychological Hx Reported Smoking Status: Current every day smoker Past Alcohol Use History: Occasional Past Drug Use History: None Reported - Past Family History Father Family Medical History: Unable to Obtain (Due to mental status) Medications and Allergies Home Medications Medication Instructions Recorded Confirmed Type Albuterol Sulfate [Albuterol 2 puff PO RT-QID 03/24/22 03/24/22 History Sulfate Hfa] Ascorbic Acid [Vitamin C] 500 mg PO BID 03/24/22 03/24/22 History Aspirin EC [Ecotrin Low Dose] 81 mg PO DAILY 03/24/22 03/24/22 History Benazepril/Hydrochlorothiazide 1 tab PO DAILY 03/24/22 03/24/22 History [Benazepril-Hctz 10-12.5 mg Tab] Cholecalciferol [Vitamin D3 (25 50 mcg PO DAILY 03/24/22 03/24/22 History Mcg = 1000 Iu)] [place]-3/Dha/Epa/Fish Oil [Fish Oil 1 cap PO HS 03/24/22 03/24/22 History 1,000 mg Softgel] Simvastatin [Zocor] 40 mg PO HS 03/24/22 03/24/22 History traZODone HCL [Desyrel] 50 mg PO HS 03/24/22 03/24/22 History Benzonatate [Tessalon Perles] 100 mg PO TID PRN #30 capsule 03/25/22 Rx Zinc Sulfate [Orazinc] 220 mg PO DAILY cap 03/25/22 Rx Allergies Allergy/AdvReac Type Severity Reaction Status Date / Time No Known Allergies Allergy Verified 01/12/24 20:39 Physical Exam Vitals: Vital Signs Temp Pulse Resp BP Pulse Ox 01/12/24 21:38 97 18 138/78 96 01/12/24 20:32 97.5 F L 59 L 18 142/40 95 Intake and Output 01/12/24 01/12/24 01/13/24 14:59 22:59 06:59 Other: Weight 61.235 kg Results CBC & Chem 7: 01/12/24 22:35 01/12/24 22:35 Labs: Abnormal Lab Results - Last 24 Hours (Table) 01/12/24 Range/Units 22:35 Sodium 136 L (137-145) mmol/L BUN 23 H (7-17) mg/dL Creatinine 1.53 H (0.52-1.04) mg/dL Glucose 119 H (74-99) mg/dL
[2024-01-13 06:29] LABS: HCT 38.5 % (34.0-46.0); HGB 13.2 gm/dL (11.4-16.0); MCH 32.1 pg (25.0-35.0); MCHC 34.2 g/dL (31.0-37.0); MCV 93.8 fL (80.0-100.0); Platelet Count 161 k/uL (150-450); RBC 4.11 m/uL (3.80-5.40); RDW 13.1 % (11.5-15.5); WBC 8.7 k/uL (3.8-10.6)
[2024-01-13 06:38] LABS: African American GFR (CKD) 39 (>60 ml/min/1.73 sqM); Anion Gap 8 mmol/L; Blood Urea Nitrogen 24 mg/dL (7-17); Calcium 9.5 mg/dL (8.4-10.2); Carbon Dioxide 23 mmol/L (22-30); Chloride 105 mmol/L (98-107); Glucose 120 mg/dL (74-99); Non-African American GFR(CKD) 34 (>60 ml/min/1.73 sqM); Potassium 3.7 mmol/L (3.5-5.1); Sodium 136 mmol/L (137-145)
[2024-01-13] MEDS: SODIUM CHLORIDE 0.9% 1,000 ML IV SCH (06:47)
[2024-01-13] MEDS: ENOXAPARIN 40 MG/0.4 ML SYRINGE SQ SCH (08:22)
[2024-01-13] MEDS: ASPIRIN 81 MG PO SCH (14:41)
[2024-01-13] MEDS: levETIRAcetam 500 MG TAB PO SCH (14:41)
--- NOTE | 2024-01-13 14:48 | P.CNNES ---
History of Present Illness Consult date: 01/13/24 Requesting physician: Chad Arce Reason for Consult: syncope vs seizure vs tia History of Present Illness: This is an 88 year-old woman with history of 2 strokes, moderate dementia since strokes, seizure-like episodes and not on antiseizure medication who presents to the emergency department because of yesterday she had episode of staring off, not responding. Her two daughters and gericare aide are at bedside who provide history. Per the daughters they stated that yesterday patient had episode of staring off and not responding and that was brief and was fatigue after the episode. Since the episode yesterday she has been having intermittent shaking of the arms that is nonrhtyhmic but with these shaking episode she is responding. They stated the patient has seizure-like episodes in the past and are brief and is not on antiseizure medication and they feel last episode was 6 years ago. Per gericare aide where patient reside in an independent facility but has help, she has brief episode of shaking of the left arm. She has two Strokes and last stroke was 10 years ago and since stroke has moderate dementia. They stated she has stage 5 dementia. She is oriented to self and place at baseline. She feeds self but need assistance with showering. She has intact remote memory. She has sundowning. She was evaluated by neurologist in past. She is on ASA 81mg daily. She was in dementia medication in past but was stopped and per daughter she has not had any further decline in memory since off. Some of the work-up during this hospital visit consisted of: CBC with diff is unremarkable. Creatning is 1.53 I reviewed rest of lab work-up. CT head old right MCA territory infarct with encephalomalacia. Motion degraded exam. No definitive acute intracranial abnormality seen. I personally reviewed and agree with report. Review of Systems The positive and negative as per HPI. Past Medical History Past Medical History: COPD, CVA/TIA, Dementia, Hypertension History of Any Multi-Drug Resistant Organisms: None Reported Past Surgical History: Cholecystectomy, Orthopedic Surgery Additional Past Surgical History / Comment(s): lumbar Past Psychological History: No Psychological Hx Reported Smoking Status: Current every day smoker Past Alcohol Use History: Occasional Past Drug Use History: None Reported - Past Family History Father Family Medical History: Unable to Obtain (Due to mental status) Medications and Allergies Home Medications Medication Instructions Recorded Confirmed Type Aspirin EC [Ecotrin Low Dose] 81 mg PO HS 03/24/22 01/13/24 History Cholecalciferol [Vitamin D3 (25 25 mcg PO DAILY 03/24/22 01/13/24 History Mcg = 1000 Iu)] [place]-3/Dha/Epa/Fish Oil [Fish Oil 1 cap PO HS 03/24/22 01/13/24 History 1,000 mg Softgel] Simvastatin [Zocor] 40 mg PO HS 03/24/22 01/13/24 History traZODone HCL [Desyrel] 50 mg PO HS 03/24/22 01/13/24 History Budesonide [Pulmicort] 2 ml INHALATION RT-BID 01/13/24 01/13/24 History Cyanocobalamin (Vitamin B-12) 1,000 mcg PO DAILY 01/13/24 01/13/24 History [Vitamin B-12] Ipratropium-Albuterol Nebulize 3 ml INHALATION RT-QID 01/13/24 01/13/24 History [Duoneb 0.5 mg-3 mg/3 ml Soln] amLODIPine BESYLATE/BENAZEPRIL 1 cap PO DAILY 01/13/24 01/13/24 History [Lotrel 2.5-10 MG] hydroCHLOROthiazide 25 mg PO DAILY 01/13/24 01/13/24 History Allergies Allergy/AdvReac Type Severity Reaction Status Date / Time No Known Allergies Allergy Verified 01/13/24 07:38 Physical Examination - Vital Signs Vital Signs: Vital Signs Temp Pulse Pulse Resp BP BP Pulse Ox 01/13/24 11:10 98.7 F 01/13/24 08:17 98.3 F 87 20 152/81 96 01/13/24 04:16 98.6 F 101 H 18 163/74 97 01/13/24 03:07 98.1 F 91 16 127/77 99 01/12/24 21:38 97 18 138/78 96 01/12/24 20:32 97.5 F L 59 L 18 142/40 95 Intake and Output 01/12/24 01/13/24 01/13/24 22:59 06:59 14:59 Intake Total 540 Balance 540 Intake: Oral 540 Other: # Voids 2 Weight 61.235 kg General Is not in acute distress HEENT is supple Neuro: Somewhat limited The patient is awake alert oriented to self stated she is in the hospital. She was able to name her daughters name correctly as well as her caregivers name. She is following simple commands. No aphasia from limited language Pupils are round equal reactive to light. Pupils are round 3 mm bilaterally. Visual baker are full to confrontation. Extraocular movements intact no nystagmus. No facial weakness. No dysarthria Motor the strength is 5 out of 5 throughout no resting tremor. Sensation is normal to touch Cerebellar normal [id number] Reflex is deferred because of her cooperation Plantars are mute. Results - Laboratory Findings CBC and BMP: 01/13/24 06:04 01/13/24 06:04 Abnormal Lab Findings: Abnormal Labs 01/12/24 01/13/24 22:35 06:04 Sodium 136 L 136 L BUN 23 H 24 H Creatinine 1.53 H 1.38 H Glucose 119 H 120 H Assessment and Plan Assessment: This is an 88-year-old woman with history of 2 strokes in the past, dementia, history of seizure-like activity and is not on any antiseizure medication who presented emergency department because of episode of staring off not responding which was brief then was fatigued afterwards and ever since patient has been having intermittent tremor of the upper extremities Likely breakthrough seizure. Patient has a history of seizure-like episodes and is not on any antiseizure medication. In the past per family members patient has episodes of unresponsiveness staring off that is brief and per the caregiver she has intermittent episodes of left upper extremity shaking. She is not on anti-epileptic drugs. History of 2 strokes in the past and the last 1 according to family member was [address] of the head shows right MCA encephalomalacia Underlying moderate dementia and her dementia is likely vascular from her strokes Patient is oriented to self and place Hypertension COPD Plan: Started the patient on Keppra 500 mg twice daily. Notified the patient's family members about the side effects of Keppra that can cause mood irritability and the family members were and acceptance of starting the medication. If she has any side effects of medication then consider Lamictal or Vimpat I ordered routine EEG and MRI of the brain I ordered vitamin B12, folate, TSH, ammonia level Restart the patient's home medication of aspirin 81 mg daily Seizure precautions seizure pads 2D echo is ordered by the primary team is pending Continue neurochecks Per family does not want to have the patient be started on dementia medication since she was started in the past and they stated that ever since she has been off they have not seen any worsening decline of her dementia. Will defer the rest of the medical management to primary and other special Discussed with patient rest of the family members. Thank for the consultation Dr. Rubin will resume neurology service tomorrow A.M. Time with Patient: Greater than 30
--- NOTE | 2024-01-13 17:43 | CA ---
Transthoracic Echo Report Name: Leslie Marcano Age: 88 Gender: F : 1935 Exam Date: 01/13/2024 13:48 Exam Location: [facility] Ht (in): 62 Wt (lb): 135 Ordering Physician: Adam Santiago MD Attending/Referring Phys: Routing Equipment Tender Rehana Brock RDCS Procedure CPT: Indications: tia Cardiac Hx: Technical Quality: Technically difficult study Contrast 1: Total Dose (mL): Contrast 2: Total Dose (mL): MEASUREMENTS (Male / Female) Normal Values 2D ECHO LVOT Diameter 2.1 cm LV Diastolic Volume MOD BP 39.7 cm??? 67 - 155 / 56 - 104 cm??? LV Systolic Volume MOD BP 17.2 cm??? 22 - 58 / 19 - 49 cm??? LV Ejection Fraction MOD BP 56.7 % >= 55 % LV Cardiac Index MOD BP 1217.0 cm???/min???m??? LV Diastolic Volume MOD 4C 37.7 cm??? LV Systolic Volume MOD 4C 15.2 cm??? LV Ejection Fraction MOD 4C 59.7 % LV Cardiac Index MOD 4C 1215.4 cm???/min???m??? LV Diastolic Length 4C 7.2 cm LV Systolic Length 4C 6.4 cm LV Diastolic Volume MOD 2C 42.0 cm??? LV Systolic Volume MOD 2C 19.6 cm??? LV Ejection Fraction MOD 2C 53.2 % LV Cardiac Index MOD 2C 1206.4 cm???/min???m??? LV Diastolic Length 2C 7.2 cm LV Systolic Length 2C 6.4 cm LA Volume 18.6 cm??? 18 - 58 / 22 - 52 cm??? LA Volume Index 11.3 cm???/m??? 16 - 28 cm???/m??? DOPPLER AV Peak Velocity 105.3 cm/s AV Peak Gradient 4.4 mmHg AV Mean Velocity 80.3 cm/s AV Mean Gradient 2.7 mmHg AV Velocity Time Integral 21.9 cm LVOT Peak Velocity 100.0 cm/s LVOT Peak Gradient 4.0 mmHg LVOT Velocity Time Integral 17.9 cm LVOT Stroke Volume 63.9 cm??? LVOT Stroke Volume Index 39.5 ml/m??? LVOT Cardiac Index 3452.3 cm???/min???m??? AV Area Cont Eq vti 2.9 cm??? AV Area Cont Eq pk 3.4 cm??? MV Peak Velocity 130.7 cm/s MV Peak Gradient 6.8 mmHg MV Mean Velocity 85.4 cm/s MV Mean Gradient 3.4 mmHg MV Velocity Time Integral 17.3 cm MV Area PHT 5.2 cm??? Mitral E Point Velocity 62.8 cm/s Mitral A Point Velocity 102.7 cm/s Mitral E to A Ratio 0.6 MV Deceleration Time 145.6 ms FINDINGS Left Ventricle Left ventricular ejection fraction is estimated at 55-60 %. Left ventricular cavity size normal. Left ventricular wall thickness normal. No obvious regional wall motion abnormalities. Right Ventricle Right ventricle not well visualized. Unable to estimate the right ventricular systolic pressure. Right Atrium Right atrium not well visualized. Left Atrium Normal left atrial size. Mitral Valve Structurally normal mitral valve. No mitral stenosis, regurgitation or prolapse. Aortic Valve Aortic valve not well visualized. No aortic valve stenosis or regurgitation. Tricuspid Valve Structurally normal tricuspid valve. No tricuspid stenosis. No tricuspid regurgitation. Pulmonic Valve Pulmonic valve not well visualized. Pericardium No pericardial effusion. Echo free space anterior to the right ventricle likely represents a fat pad. Aorta Aortic annulus normal. CONCLUSIONS Left ventricular ejection fraction 55-60% No mitral regurgitation No tricuspid regurgitation Previewed by: Dr. Zeferino Conn DO (Electronically Signed) Final Date: 13 January 2024 17:42
[2024-01-13 20:16] LABS: Vitamin B12 >3600.0 pg/mL (200.0-944.0)
--- NOTE | 2024-01-13 20:48 | EEG ---
ELECTROENCEPHALOGRAM REPORT CLINICAL HISTORY: This is an 88-year-old woman with a history of stroke, seizure-like episode, who presents to the emergency department because of blank stare, confusion, and tremors. The video EEG is obtained to evaluate for seizure epileptiform activity. RELEVANT MEDICATIONS: The patient is not on any antiseizure medication. EEG TYPE: A routine 21-channel EEG with video using the 10/20 electrode placement system. DESCRIPTION: Wakefulness and drowsiness are obtained. During awake state, the posterior-dominant rhythm consists of [id number] voltage of 8.5 to 9 hertz activity that is well modulated, and well sustained. There is no physiological stage 2 sleep architecture. There is no focal slowing. Interictal and ictal is none. ACTIVATION PROCEDURE: Photic stimulation did not evoke a posterior driving response. There is no abnormality during the photic stimulation. Hyperventilation is not performed. CLINICAL INTERPRETATION: This is a normal routine EEG. There is no focal slowing, epileptiform discharge, or seizure on the EEG. A normal routine EEG does not rule out underlying epilepsy. Clinical correlation is recommended. MMODL / IJN: [id number] /
[2024-01-14 07:56] VITALS: BP 154/81; PULSE 88; RESP 15; TEMP 97.6
[2024-01-14] MEDS: ENOXAPARIN 30 MG/0.3 ML SYRINGE SQ SCH (09:35)
--- NOTE | 2024-01-14 14:53 | P.DS ---
Providers Date of admission: 01/12/24 23:19 Expected date of discharge: 01/14/24 Attending physician: Adam Santiago MD Consults: 01/12/24 23:17 Consult Physician Routine Consulting Provider: Layton Hooks Consult Reason/Comments: syncope vs seizure vs tia Do you want consulting provider notified?: Yes Primary care physician: [facility] Course: 88-year-old female with a PMH of dementia, resident of [facility], with history of CVAs, COPD, hypertension, and hyperlipidemia who was brought to the emergency room by family members after an episode of unresponsiveness. The history is obtained by the patient's daughters at the bedside who are also serving as the patient's primary caregiver. They report that the patient was sitting with them at the dinner table earlier tonight when she suddenly became unresponsive. Her eyes were open although she was not responding to any stimuli and was noted to have a right-sided facial droop. The patient gradually became more responsive after 5 minutes and had essentially returned to her baseline over the next few hours, especially at the time of interview. The daughter reports that this is in line with her prior episodes of CVA where she would become catatonic and unresponsive. There was no reports of shaking movements, urinary incontinence, foaming at the mouth, or tongue biting. The patient did appear to be fatigued after regaining consciousness. The patient at the time of interview had no active complaints and reported feeling well. Denied experiencing weakness, numbness, tingling, headaches, visual disturbances. Also denied chest discomfort, shortness breath, fever, chills, cough, nausea, vomiting, abdominal pain, diarrhea. CT brain in the emergency room revealed findings of an old right MCA infarct with encephalomalacia with no acute intracranial abnormalities noted. Laboratory evaluation revealed BUN of 23 with creatinine 1.53 (previously 1.0 on 03/25/2022), and sodium 136. patient was admitted, she was evaluated by neurology who suspected seizures, started her on keppra 500mg p.o bid. Patient did have EEG that did not show epileptiform discharges. Had an echocardiogram that was okay. She had two Strokes and last stroke was 10 years ago and since stroke has moderate dementia. She is oriented to self and place at baseline. SHe will need MRI brain, which can be done outpatient according to neuro. She did not have any recurrent episodes of seizures during the hospitalization. She will be discharged in a stable condition. MRI slip provided. WIll need outpateint neuro follow up. This was communicated with career development engineer. Pateint was seen and examined on the day of discharge 01/13 TIme for discharge 35 min Patient Condition at Discharge: Fair Plan - Discharge Summary Discharge Rx Participant: No New Discharge Prescriptions: No Action traZODone HCL [Desyrel] 50 mg PO HS Aspirin EC [Ecotrin Low Dose] 81 mg PO HS Cholecalciferol [Vitamin D3 (25 Mcg = 1000 Iu)] 25 mcg PO DAILY Ipratropium-Albuterol Nebulize [Duoneb 0.5 mg-3 mg/3 ml Soln] 3 ml INHALATION RT-QID amLODIPine BESYLATE/BENAZEPRIL [Lotrel 2.5-10 MG] 1 cap PO DAILY [place]-3/Dha/Epa/Fish Oil [Fish Oil 1,000 mg Softgel] 1 cap PO HS Simvastatin [Zocor] 40 mg PO HS Cyanocobalamin (Vitamin B-12) [Vitamin B-12] 1,000 mcg PO DAILY hydroCHLOROthiazide 25 mg PO DAILY Budesonide [Pulmicort] 2 ml INHALATION RT-BID Discharge Medication List Aspirin EC [Ecotrin Low Dose] 81 mg PO HS 03/24/22 [History] Cholecalciferol [Vitamin D3 (25 Mcg = 1000 Iu)] 25 mcg PO DAILY 03/24/22 [History] [place]-3/Dha/Epa/Fish Oil [Fish Oil 1,000 mg Softgel] 1 cap PO HS 03/24/22 [History] Simvastatin [Zocor] 40 mg PO HS 03/24/22 [History] traZODone HCL [Desyrel] 50 mg PO HS 03/24/22 [History] Budesonide [Pulmicort] 2 ml INHALATION RT-BID 01/13/24 [History] Cyanocobalamin (Vitamin B-12) [Vitamin B-12] 1,000 mcg PO DAILY 01/13/24 [History] Ipratropium-Albuterol Nebulize [Duoneb 0.5 mg-3 mg/3 ml Soln] 3 ml INHALATION RT-QID 01/13/24 [History] amLODIPine BESYLATE/BENAZEPRIL [Lotrel 2.5-10 MG] 1 cap PO DAILY 01/13/24 [History] hydroCHLOROthiazide 25 mg PO DAILY 01/13/24 [History] Follow up Appointment(s)/Referral(s): Hector Khalil MD [Primary Care Provider] - 1-2 days
--- NOTE | 2024-01-14 15:35 | US ---
EXAMINATION TYPE: US carotid duplex BILAT DATE OF EXAM: 01/14/2024 COMPARISON: NONE CLINICAL INDICATION: Female, 88 years old with history of seizure vs TIA; possible TIA TECHNIQUE: Carotid duplex ultrasound examination. Indirect Doppler criteria was utilized. FINDINGS: EXAM MEASUREMENTS: RIGHT: Peak Systolic Velocity (PSV) cm/sec ----- Right CCA: 69.5 ----- Right ICA: 69.8 ----- Right ECA: 130.0 ICA/CCA ratio: 1.0 RIGHT: End Diastole cm/sec ----- Right CCA: 13.0 ----- Right ICA: 8.6 ----- Right ECA: 0.0 LEFT: Peak Systolic Velocity (PSV) cm/sec ----- Left CCA: 67.4 ----- Left ICA: 96.4 ----- Left ECA: 112.0 ICA/CCA ratio: 1.4 LEFT: End Diastole cm/sec ----- Left CCA: 5.3 ----- Left ICA: 9.2 ----- Left ECA: 0.0 VERTEBRALS (direction of flow): Right Vertebral: Antegrade Left Vertebral: Antegrade Rhythm: Normal PASSENGER SERVICE MANAGER NOTES: Mild heterogeneous plaque with no significant stenosis seen IMPRESSION: Less than 50% stenosis of bilateral carotid bifurcations. Criteria for Assigning % of Stenosis / Diameter reduction (Estimation based on the indirect measurements of the internal carotid artery velocities (ICA PSV). 1. Normal (no stenosis)=ICA PSV < 125 cm/s: ratio < 2.0: ICA EDV<40 cm/s. 2. Less than 50% stenosis=ICA PSV < 125 cm/s: ratio < 2.0: ICA EDV<40 cm/s. 3. 50 to 69% stenosis=ICA PSV of 125 to 230 cm/s: ration 2.0 ? 4.0: ICA EDV 40-100 cm/s. 4. Greater than 70% stenosis to near occlusion= ICA PSV > 230 cm/s: ratio > 4.0: ICA EDV > 100 cm/s. 5. Near occlusion= ICA PSV velocities may be low or undetectable: variable ratio and ICA EDV. 6. Total occlusion=unable to detect flow.
--- NOTE | 2024-01-15 11:28 | P.PN ---
Subjective Progress Note Date: 01/14/24 Patient was initially seen by Dr. Layton Hooks. Please refer to his note for details. Patient is a 88-year-old female with history of CVA, seizure, not on any antiepileptic medication, dementia, who presents because of episode of staring off, not responding and tremor. Dr. Hooks started patient on Keppra 5 mg twice daily. EEG was normal. MRI brain has been ordered. Patient at present is sitting comfortably in the recliner. Patient's caregiver was also present. Patient does have history of dementia. Per caregiver, patient walks with a walker, because she gets winded easily, and uses it for st eadiness. Caregiver mentioned that prior to arrival, patient had an episode, in which she was doing dinner, sitting with sister, and her head went to the side, mouth droop and she was having tremor of the hand, stared off. She was not talking for about 5 minutes. She does have history of CVA twice in the past. Some of the work-up during this hospital visit consisted of: CBC with diff is unremarkable. Creatning is 1.53 I reviewed rest of lab work-up. CT head old right MCA territory infarct with encephalomalacia. Motion degraded exam. No definitive acute intracranial abnormality seen. I personally reviewed and agree with report. Objective - Vital Signs Vital signs: Vital Signs Temp 97.6 F 01/14/24 07:00 Pulse 88 01/14/24 07:00 Resp 15 01/14/24 07:00 BP 154/81 01/14/24 07:00 Pulse Ox 95 01/14/24 07:00 FiO2 Intake & Output 01/13/24 01/14/24 01/14/24 18:59 06:59 18:59 Intake Total 120 240 118 Output Total 1 Balance 120 239 118 Weight 61.235 kg Intake: Oral 120 240 118 Output: Urine 1 Other: # Voids 1 - Exam Patient is alert and awake in no distress. Patient knows her date of 1935. She believes that she is in [facility] in [facility]. Patient used to live in [place] in the past but not anymore. She says something about [place]. Patient does not know the current month or the year. Speech and language functions appears normal. No obvious aphasia. Muscle strength is normal. Sensory to touch is equal. No ataxia. - Labs CBC & Chem 7: 01/13/24 06:04 01/13/24 06:04 Labs: Abnormal Lab Results - Last 24 Hours (Table) 01/13/24 Range/Units 14:29 Vitamin B12 >3600.0 H (200.0-944.0) pg/mL Assessment and Plan Assessment: This is an 88-year-old woman with history of 2 strokes in the past, dementia, history of seizure-like activity and is not on any antiseizure medication who presented emergency department because of episode of staring off not responding which was brief then was fatigued afterwards and ever since patient has been having intermittent tremor of the upper extremities Likely breakthrough seizure. Patient has a history of seizure-like episodes and is not on any antiseizure medication. In the past per family members patient has episodes of unresponsiveness staring off that is brief and per the caregiver she has intermittent episodes of left upper extremity shaking. She is not on anti- epileptic drugs. History of 2 strokes in the past and the last 1 according to family member was [address] of the head shows right MCA encephalomalacia Underlying moderate dementia and her dementia is likely vascular from her strokes Patient is oriented to self and place Hypertension COPD Plan: Patient probably had a focal seizure, and Dr. Hooks started the patient on Keppra 500 mg twice daily. He had notified the patient's family members about t he side effects of Keppra that can cause mood irritability and the family members were and acceptance of starting the medication. If she has any side effects of medication then consider Lamictal or Vimpat EEG was normal. No focal slowing, epileptiform discharges or seizure on the EEG. Seizure precautions seizure pads 2D echo revealed normal left ventricular EF 55 to 60%. No obvious regional wall motion abnormalities. No valvular abnormalities. Carotid Doppler revealed less than 50% stenosis of bilateral carotid bifurcations. Antegrade flow in both vertebral arteries. Continue aspirin 81 mg daily and statins. Dr. Hooks has ordered MRI, which can be done as an outpatient, as patient cannot have MRI until Tuesday due to long weekend. Recommend patient follow-up with neurologist outpatient. B12 > 3600, folate 12.00, TSH 0.84, ammonia <9, all normal. Per family does not want to have the patient be started on dementia medication since she was started in the past and they stated that ever since she has been off they have not seen any worsening decline of her dementia. Neurologically clear for discharge.
== END 2024-01-14 15:53 | disposition home or self-care (01) ==
LOC: EC 20:31 → 6NMEDSUR 23:19
PROVIDERS: ADMIT Internal Medicine; ATTEND Internal Medicine
DX: R55 Syncope and collapse (principal); R56.9 Unspecified convulsions; R29.810 Facial weakness; F03.B0 Unspecified dementia, moderate, without behavioral disturbance, psychotic disturbance, mood disturbance, and anxiety; F05 Delirium due to known physiological condition; J44.9 Chronic obstructive pulmonary disease, unspecified; E78.5 Hyperlipidemia, unspecified; F17.200 Nicotine dependence, unspecified, uncomplicated; I10 Essential (primary) hypertension; Z86.73 Personal history of transient ischemic attack (TIA), and cerebral infarction without residual deficits; Z79.82 Long term (current) use of aspirin; Z79.899 Other long term (current) drug therapy
CPT/HCPCS: 36415; 70450; 80048; 80053; 82140; 82607; 82746; 83735; 84443; 84484; 85025; 85027; 85610; 85730; 93005; 93306; 93880; 95816; 96372; 99285

== ENCOUNTER 2024-03-27 12:49 | Emergency (ER) | payer MEDICARE ==
--- NOTE | 2024-03-27 13:26 | ED ---
Head Injury HPI - General Chief complaint: Head Injury Stated complaint: Fall-Head injury Time Seen by Provider: 03/27/24 13:25 Source: patient, RN notes reviewed, old records reviewed, Caregiver (friend) Mode of arrival: ambulatory Limitations: no limitations - History of Present Illness Initial comments: 88-year-old female presented to the ER with a chief complaint of a fall. Patient states she was walking into the hospital to have a Holter monitor placed today when she accidentally tripped and fell backwards hitting the back of her head. She denies loss of consciousness. No blood thinning medications. She does take baby aspirin daily. Patient denies any dizziness, lightheadedness, chest pain or shortness of breath prior to fall. Patient denies any other injuries or complaints at this time. - Related Data Home Medications Medication Instructions Recorded Confirmed Aspirin EC [Ecotrin Low Dose] 81 mg PO HS 03/24/22 03/27/24 Cholecalciferol [Vitamin D3 (25 25 mcg PO DAILY 03/24/22 03/27/24 Mcg = 1000 Iu)] [place]-3/Dha/Epa/Fish Oil [Fish Oil 1 cap PO HS 03/24/22 03/27/24 1,000 mg Softgel] Simvastatin [Zocor] 40 mg PO HS 03/24/22 03/27/24 traZODone HCL [Desyrel] 50 mg PO HS 03/24/22 03/27/24 Budesonide [Pulmicort] 2 ml INHALATION RT-BID 01/13/24 03/27/24 Cyanocobalamin (Vitamin B-12) 1,000 mcg PO DAILY 01/13/24 03/27/24 [Vitamin B-12] Ipratropium-Albuterol Nebulize 3 ml INHALATION RT-QID 01/13/24 03/27/24 [Duoneb 0.5 mg-3 mg/3 ml Soln] amLODIPine BESYLATE/BENAZEPRIL 1 cap PO DAILY 01/13/24 03/27/24 [Lotrel 2.5-10 MG] hydroCHLOROthiazide 25 mg PO DAILY 01/13/24 03/27/24 OXcarbazepine [Trileptal] 150 mg PO BID 03/27/24 03/27/24 Previous Rx's Medication Instructions Recorded levETIRAcetam [Keppra] 500 mg PO Q12HR 60 Days #120 tab 01/14/24 Allergies/Adverse reactions: Allergies Allergy/AdvReac Type Severity Reaction Status Date / Time No Known Allergies Allergy Verified 03/27/24 13:32 Review of Systems ROS Statement: Those systems with pertinent positive or pertinent negative responses have been documented in the HPI. ROS Other: All systems not noted in ROS Statement are negative. Past Medical History Past Medical History: COPD, CVA/TIA, Dementia, Hypertension History of Any Multi-Drug Resistant Organisms: None Reported Past Surgical History: Cholecystectomy, Orthopedic Surgery Additional Past Surgical History / Comment(s): lumbar Past Psychological History: No Psychological Hx Reported Smoking Status: Current every day smoker Past Alcohol Use History: Occasional Past Drug Use History: None Reported - Past Family History Father Family Medical History: Unable to Obtain (Due to mental status) General Exam Limitations: no limitations General appearance: alert, in no apparent distress Head exam: Present: atraumatic, normocephalic, normal inspection Eye exam: Present: normal appearance, PERRL, EOMI. Absent: scleral icterus, conjunctival injection, periorbital swelling Pupils: Present: normal accommodation ENT exam: Present: normal exam, normal oropharynx, mucous membranes moist Neck exam: Present: normal inspection. Absent: tenderness, meningismus, lymphadenopathy Respiratory exam: Present: normal lung sounds bilaterally. Absent: respiratory distress, wheezes, rales, rhonchi, stridor Cardiovascular Exam: Present: regular rate, normal rhythm, normal heart sounds. Absent: systolic murmur, diastolic murmur, rubs, gallop, clicks GI/Abdominal exam: Present: soft, normal bowel sounds. Absent: distended, tenderness, guarding, rebound, rigid Extremities exam: Present: normal inspection, full ROM, normal capillary refill, other (2+ bilateral dorsalis pedis/posterior tibialis and radial pulses.). Absent: tenderness, pedal edema, joint swelling, calf tenderness Back exam: Present: normal inspection Neurological exam: Present: alert, CN II-XII intact, other (ANO x 2 (patient's baseline)) Skin exam: Present: warm, dry, intact, normal color. Absent: rash Course Vital Signs 03/27/24 03/27/24 12:55 15:40 Temperature 98.5 F 98.2 F Pulse Rate 99 100 Respiratory 20 16 Rate Blood Pressure 103/68 133/65 O2 Sat by Pulse 95 97 Oximetry Medical Decision Making - Medical Decision Making Was pt. sent in by a medical professional or institution (MICHELLE Valle, DIE SETTER, urgent care, hospital, or correction...) When possible be specific @ -No Did you speak to anyone other than the patient for history (EMS, parent, family, police, friend...)? What history was obtained from this source @ -Caregiver aiding in HPI Did you review nursing and triage notes (agree or disagree)? Why? @ -I reviewed and agree with nursing and triage notes Were old charts reviewed (outside hosp., previous admission, EMS record, old EKG, old radiological studies, urgent care reports/EKG's, correction records)? Report findings @ -No old charts were reviewed Differential Diagnosis (chest pain, altered mental status, abdominal pain women, abdominal pain men, vaginal bleeding, weakness, fever, dyspnea, syncope, headache, dizziness, GI bleed, back pain, seizure, CVA, palpatations, mental health, musculoskeletal)? @ -Fracture, dislocation, contusion, hematoma, intracranial hemorrhage, concussion, abrasion, laceration this list does not like to be all-inclusive EKG interpreted by me (3pts min.). @ -None done X-rays interpreted by me (1pt min.). @ -None done CT interpreted by me (1pt min.). @ -CT brain negative for acute intracranial process. U/S interpreted by me (1pt. min.). @ -None done What testing was considered but not performed or refused? (CT, X-rays, U/S, labs)? Why? @ -None What meds were considered but not given or refused? Why? @ -None Did you discuss the management of the patient with other professionals (professionals i.e. MICHELLE Valle, DIE SETTER, lab, RT, psych nurse, adoption social worker, billet assembler, teacher, project officer, test case developer)? Give summary @ -No Was smoking cessation discussed for >3mins.? @ -No Was critical care preformed (if so, how long)? @ -No Were there social determinants of health that impacted care today? How? (Homelessness, low income, unemployed, alcoholism, drug addiction, transportation, low edu. Level, literacy, decrease access to med. care, longterm, rehab)? @ -No Was there de-escalation of care discussed even if they declined (Discuss DNR or withdrawal of care, Hospice)? DNR status @ -No What co-morbidities impacted this encounter? (DM, HTN, Smoking, COPD, CAD, Cancer, CVA, ARF, Chemo, Hep., AIDS, mental health diagnosis, sleep apnea, morbid obesity)? @ -None Was patient admitted / discharged? Hospital course, mention meds given and route, prescriptions, significant lab abnormalities, going to OR and other pertinent info. @ -Discharge. 88-year-old female presented to the ER status post fall. Patient does admit to head injury but denies loss of consciousness or blood thinning medications. History and physical exam completed. Vitals within normal limits. Patient no signs of acute distress. GCS 15. Patient AxO x2, which is patient's baseline per caregiver and sister, at bedside. Bilateral upper and lower extremities neuro vastly intact. No focal bony tenderness. Patient freely moving all extremities. No scalp hematoma or wounds noted. Due to patient's age CT brain will be completed, patient is agreeable. CT brain negative. Upon reevaluation, patient resting comfortably on stretcher no signs of acute distress. Patient is eager for discharge. Results discussed with patient, sister and caregiver, all questions answered. Patient stable for discharge at this time. Strict return parameters discussed. Patient discharged in stable condition with follow-up to PCP. Patient verbally expressed understanding and agreement with care plan. Case discussed with ED attending, . Undiagnosed new problem with uncertain prognosis? @ -No Drug Therapy requiring intensive monitoring for toxicity (Heparin, Nitro, Insulin, Cardizem)? @ -No Were any procedures done? @ -No Diagnosis/symptom? @ -Fall Acute, or Chronic, or Acute on Chronic? @ -Acute Uncomplicated (without systemic symptoms) or Complicated (systemic symptoms)? @ -Uncomplicated Side effects of treatment? @ -No Exacerbation, Progression, or Severe Exacerbation? @ -No Poses a threat to life or bodily function? How? (Chest pain, USA, SD, pneumonia, PE, COPD, DKA, ARF, appy, cholecystitis, CVA, Diverticulitis, Homicidal, Suicidal, threat to staff... and all critical care pts) @ -No - Radiology Data Radiology results: report reviewed, image reviewed Disposition Clinical Impression: Fall Disposition: HOME SELF-CARE Condition: Stable Instructions (If sedation given, give patient instructions): Fall Prevention for Older Adults (ED) Additional Instructions: Follow-up with PCP. Call cardiology to have for monitor appointment rescheduled. Return to the ER for new or worsening concerns. Is patient prescribed a controlled substance at d/c from ED?: No Referrals: Erich Cheema MD [Primary Care Provider] - 1-2 days Time of Disposition: 15:25
--- NOTE | 2024-03-27 14:44 | CT ---
EXAMINATION TYPE: CT brain wo con CT DLP: 1125.4 mGycm, Automated exposure control for dose reduction was used. DATE OF EXAM: 03/27/2024 2:38 PM COMPARISON: Prior CT Brain from 01/12/2024 . CLINICAL INDICATION:Female, 88 years old with history of fall with HI no thinners, Fall, head injury, no thinners, pain. TECHNIQUE: Brain: Multiple axial CT images of the brain were obtained without IV contrast. Sagittal reformats re viewed. FINDINGS: Brain: Extra-axial spaces: No abnormal extra-axial fluid collections. Ventricular system: Dilatation in proportion to cerebral atrophy. Cerebral parenchyma: Moderate diffuse cerebral atrophy. No acute intraparenchymal hemorrhage or mass effect. Right frontal parietotemporal watershed region encephalomalacia from prior infarct. The collins ining berkowitz-white junction is well differentiated. Scattered hypoattenuating areas are seen within the periventricular white matter. Cerebellum: Unremarkable. Mass effect: No evidence of midline shift. Intracranial vasculature: Atherosclerotic calcifications of the intracranial vessels. Soft tissues: Normal. Calvarium/osseous structures: No depressed skull fracture. Paranasal sinuses and mastoid air cells: Clear Visualized orbits: Orbital contents are intact. IMPRESSION: 1. No acute intracranial process. 2. 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 3. Moderate generalized cerebral atrophy with nonspecific white matter changes, likely secondary to c hronic small vessel ischemic disease. [facility], , 03/27/2024 2:42 PM
[2024-03-27 15:48] VITALS: BP 133/65; PULSE 100; RESP 16; TEMP 98.2
== END 2024-03-27 15:40 | disposition home or self-care (01) ==
LOC: EC 12:49
DX: S09.90XA Unspecified injury of head, initial encounter (principal); F17.200 Nicotine dependence, unspecified, uncomplicated; Z86.73 Personal history of transient ischemic attack (TIA), and cerebral infarction without residual deficits; Z90.49 Acquired absence of other specified parts of digestive tract; W01.0XXA Fall on same level from slipping, tripping and stumbling without subsequent striking against object, initial encounter; Y93.01 Activity, walking, marching and hiking
CPT/HCPCS: 70450; 99284

== ENCOUNTER 2024-04-13 13:02 | Emergency (ER) | payer MEDICARE ==
[2024-04-13 13:13] VITALS: TEMP 99.1
[2024-04-13] MEDS ORDERED: IPRATROPIUM-ALBUTEROL 3 ML NEB INHALATION STA (13:22)
[2024-04-13] MEDS: SODIUM CHLORIDE 0.9% 1,000 ML IV STA (13:48)
[2024-04-13] MEDS: ONDANSETRON 4 MG/2 ML VIAL IVP STA (13:49)
[2024-04-13] MEDS: FAMOTIDINE 20 MG/2 ML VIAL IV STA (13:51)
[2024-04-13] MEDS: methylPREDNISolone SOD SUCCI 125 MG/2 ML VIAL IV STA (13:51)
[2024-04-13 13:56] LABS: Basophils # (A) 0.1 k/uL (0-0.2); Basophils % (A) 1 %; Eosinophils # (A) 0.1 k/uL (0-0.7); Eosinophils % (A) 1 %; HCT 43.4 % (34.0-46.0); HGB 14.7 gm/dL (11.4-16.0); Lymphocytes # (A) 3.5 k/uL (1.0-4.8); Lymphocytes % (A) 36 %; MCHC 33.8 g/dL (31.0-37.0); MCV 94.5 fL (80.0-100.0); Monocytes # (A) 0.4 k/uL (0-1.0); Monocytes % (A) 4 %; Neutrophils # (A) 5.5 k/uL (1.3-7.7); Neutrophils % (A) 56 %; Platelet Count 172 k/uL (150-450); RDW 13.1 % (11.5-15.5); WBC 9.7 k/uL (3.8-10.6)
[2024-04-13 14:15] LABS: ALT 24 U/L (4-34); AST 31 U/L (14-36); African American GFR (CKD) 49 (>60 ml/min/1.73 sqM); Albumin 3.8 g/dL (3.5-5.0); Alkaline Phosphatase 122 U/L (38-126); Anion Gap 8 mmol/L; Blood Urea Nitrogen 35 mg/dL (7-17); Calcium 9.4 mg/dL (8.4-10.2); Carbon Dioxide 22 mmol/L (22-30); Chloride 105 mmol/L (98-107); Glucose 103 mg/dL (74-99); Magnesium 1.8 mg/dL (1.6-2.3); Non-African American GFR(CKD) 42 (>60 ml/min/1.73 sqM); Sodium 135 mmol/L (137-145); Total Bilirubin 0.7 mg/dL (0.2-1.3); Total Protein 6.6 g/dL (6.3-8.2)
--- NOTE | 2024-04-13 14:20 | XR ---
EXAMINATION TYPE: XR chest 2V DATE OF EXAM: 04/13/2024 COMPARISON: NONE CLINICAL INDICATION: Female, 88 years old with history of Weakness; , TECHNIQUE: XR chest 2V views of the chest. FINDINGS: Heart is enlarged and bilateral linear scarring or atelectasis. Stable nodule bilateral upper lobe li isauro related to granuloma. Atherosclerotic change aorta. Heart size normal. Diffuse osteopenia and ar thropathy of the shoulders. Degenerative change of the spine. IMPRESSION: 1. No acute process. [facility], , 04/13/2024 2:18 PM
--- NOTE | 2024-04-13 15:42 | ED ---
General Adult HPI - General Chief complaint: Shortness of Breath Stated complaint: SOB Time Seen by Provider: 04/13/24 13:10 Source: patient, family, RN notes reviewed, old records reviewed Mode of arrival: EMS Limitations: no limitations - History of Present Illness Initial comments: Patient is an 88-year-old female presents emergency department with daughter over concern for shortness of breath in the setting of chronic COPD, possible URI symptoms, as well as weakness. They also noticed that patient had a swollen lower lip as well as a possible rash on her back. Symptoms have been ongoing for days. She has been taking her normal medications however recent switch to carbamazepine. Currently completed course of doxycycline for bronchitis. Patient has a history of dementia, prior strokes, hypertension. Also history of COPD. Not normally on oxygen. Presents for further evaluation at this time. Daughter is a primary story as well as the caregiver. - Related Data Home Medications Medication Instructions Recorded Confirmed Aspirin EC [Ecotrin Low Dose] 81 mg PO HS 03/24/22 04/13/24 Cholecalciferol [Vitamin D3 (25 25 mcg PO DAILY 03/24/22 04/13/24 Mcg = 1000 Iu)] [place]-3/Dha/Epa/Fish Oil [Fish Oil 1 cap PO HS 03/24/22 04/13/24 1,000 mg Softgel] Simvastatin [Zocor] 40 mg PO HS 03/24/22 04/13/24 traZODone HCL [Desyrel] 50 mg PO HS 03/24/22 04/13/24 Budesonide [Pulmicort] 0.5 mg INHALATION RT-BID 01/13/24 04/13/24 Cyanocobalamin (Vitamin B-12) 1,000 mcg PO DAILY 01/13/24 04/13/24 [Vitamin B-12] Ipratropium-Albuterol Nebulize 3 ml INHALATION RT-QID 01/13/24 04/13/24 [Duoneb 0.5 mg-3 mg/3 ml Soln] amLODIPine BESYLATE/BENAZEPRIL 1 cap PO DAILY 01/13/24 04/13/24 [Lotrel 2.5-10 MG] hydroCHLOROthiazide 25 mg PO DAILY 01/13/24 04/13/24 OXcarbazepine [Trileptal] 75 mg PO BID 11/12/24 11/29/24 Previous Rx's Medication Instructions Recorded Famotidine 20 mg PO DAILY 21 Days #21 tab 04/13/24 predniSONE [Deltasone] 40 mg PO DAILY 5 Days #10 tab 04/13/24 Allergies Allergy/AdvReac Type Severity Reaction Status Date / Time No Known Allergies Allergy Verified 04/13/24 15:35 Review of Systems ROS Statement: Those systems with pertinent positive or pertinent negative responses have been documented in the HPI. Review of Systems: CONST: Denies fever EYES: Denies blurry vision ENT: This is nonproductive cough C/V: Denies Chest pain RESP: Denies shortness of breath GI: Denies abdominal pain : Denies dysuria SKIN: Denies rash. MSK: Denies joint pain. NEURO: Denies headache ROS Other: All systems not noted in ROS Statement are negative. Past Medical History Past Medical History: COPD, CVA/TIA, Dementia, Hypertension Additional Past Medical History / Comment(s): pneumonia History of Any Multi-Drug Resistant Organisms: None Reported Past Surgical History: Cholecystectomy, Orthopedic Surgery Additional Past Surgical History / Comment(s): lumbar Past Psychological History: No Psychological Hx Reported Smoking Status: Current every day smoker Past Alcohol Use History: Occasional Past Drug Use History: None Reported - Past Family History Father Family Medical History: Unable to Obtain (Due to mental status) General Exam - General Exam Comments Initial Comments: General: Appears in no acute distress. HEAD: Normal with no signs of head trauma. EYES: PERRLA, EOMI, conjunctiva normal, no discharge. Pupils are 3 mm and equal bilaterally. ENT: Hearing grossly intact, normal oropharynx. Lower lip mild edema with no evidence of intraoral lesions or mucosal lesions. No stridor. No significant tongue swelling. No posterior oropharyngeal swelling. RESPIRATORY: Relatively clear breath sounds bilaterally. No significant hypoxia. No significant increased work of breathing. C/V: Regular rate and rhythm. S1 and S2 auscultated, no edema, peripheral pulses 2+ and intact throughout ABD: Abd is soft, nontender, nondistended EXT: No obvious deformity. SKIN: Macular rash over the back does not causing any distress. NEURO: Alert and oriented x 2. Limitations: no limitations Course Vital Signs 04/13/24 04/13/24 04/13/24 13:08 13:13 13:21 Temperature 99.1 F Pulse Rate 91 110 H Respiratory 20 20 20 Rate Blood Pressure 143/103 143/103 O2 Sat by Pulse 95 96 Oximetry 04/13/24 16:13 Temperature Pulse Rate 86 Respiratory 18 Rate Blood Pressure 150/84 O2 Sat by Pulse 96 Oximetry Medical Decision Making - Medical Decision Making Was pt. sent in by a medical professional or institution (, MICHELLE, CUSTOMER SUPPORT AGENT, urgent care, hospital, or fci...) When possible be specific @ -No Did you speak to anyone other than the patient for history (EMS, parent, family, police, friend...)? What history was obtained from this source @ -Patient's daughter as well as caregiver provide both the patient's past medical history. Did you review nursing and triage notes (agree or disagree)? Why? @ -I reviewed and agree with nursing and triage notes Were old charts reviewed (outside hosp., previous admission, EMS record, old EKG, old radiological studies, urgent care reports/EKG's, fci records)? Report findings @ -No old charts were reviewed Differential Diagnosis (chest pain, altered mental status, abdominal pain women, abdominal pain men, vaginal bleeding, weakness, fever, dyspnea, syncope, headache, dizziness, GI bleed, back pain, seizure, CVA, palpatations, mental health, musculoskeletal)? @ -Differential Weakness: Hypoglycemia, shock, sepsis, hyponatremia, anemia, infection, NV, ETOH, adverse medicine reaction, overdose, stroke, this is not meant to be an all-inclusive l ist. EKG interpreted by me (3pts min.). @ -As above X-rays interpreted by me (1pt min.). @ -X-ray reveals no obvious acute cardiopulmonary process. CT interpreted by me (1pt min.). @ -None done U/S interpreted by me (1pt. min.). @ -None done What testing was considered but not performed or refused? (CT, X-rays, U/S, labs)? Why? @ -None What meds were considered but not given or refused? Why? @ -None Did you discuss the management of the patient with other professionals (professionals i.e. MICHELLE Valle, CUSTOMER SUPPORT AGENT, lab, RT, psych nurse, social worker clinical, sample maker, teacher, earth science technical officer, caseworker intake)? Give summary @ -No Was smoking cessation discussed for >3mins.? @ -No Was critical care preformed (if so, how long)? @ -No Were there social determinants of health that impacted care today? How? (Ho melessness, low income, unemployed, alcoholism, drug addiction, transportation, low edu. Level, literacy, decrease access to med. care, long term, rehab)? @ -No Was there de-escalation of care discussed even if they declined (Discuss DNR or withdrawal of care, Hospice)? DNR status @ -No What co-morbidities impacted this encounter? (DM, HTN, Smoking, COPD, CAD, Cancer, CVA, ARF, Chemo, Hep., AIDS, mental health diagnosis, sleep apnea, morbid obesity)? @ -COPD Was patient admitted / discharged? Hospital course, mention meds given and route, prescriptions, significant lab abnormalities, going to OR and other pertinent info. @ -Based on the patient's presentation and physical exam, presents emergency department complaining of weakness, URI symptoms as well as a rash. Rash and other symptoms are all improving. No significant hypoxia. We will obtain generalized workup. Patient was in agreement this plan. Vital signs currently within acceptable limits. EKG shows no signs of acute ischemia. Chest x-ray unremarkable. Laboratory studies are all within acceptable limits. I discussed results with patient as well as family. Diagnosis is COPD exacerbation. Patient will be placed on prednisone and recommended continuation of inhalers at home. She also be given Pepcid. She may have a mild allergic reaction but no concern for anaphylaxis at this time. Recommended monitoring of this as well as follow-up with neurology regarding antiseizure medications as they believe it is causing chronic symptoms. I did offer admission if needed however they would like to take the patient home with close follow-up with PCP. I believe this is reasonable. Recommended close follow-up with her neurologist as well. I will provide the patient with a prescription for prednisone, Pepcid. I in structed the patient to follow up with their PCP in the next 1-3 days.. I explained that the patient should return to the emergency department if they experience any worsening symptoms. Strict return precautions were discussed with the patient. The patient expressed understanding of these instructions. I answered all questions that the patient had. The patient was discharged home in good condition with their prescriptions and follow up information. Undiagnosed new problem with uncertain prognosis? @ -No Drug Therapy requiring intensive monitoring for toxicity (Heparin, Nitro, Insulin, Cardizem)? @ -No Were any procedures done? @ -No Diagnosis/symptom? @ -COPD, allergic reaction Acute, or Chronic, or Acute on Chronic? @ -Acute Uncomplicated (without systemic symptoms) or Complicated (systemic symptoms)? @ -uncomplicated Side effects of treatment? @ -No Exacerbation, Progression, or Severe Exacerbation? @ -No Poses a threat to life or bodily function? How? (Chest pain, USA, NV, pneumonia, PE, COPD, DKA, ARF, appy, cholecystitis, CVA, Diverticulitis, Homicidal, Suicidal, threat to staff... and all critical care pts) @ -Unlikely - Lab Data Result diagrams: 04/13/24 13:44 04/13/24 13:44 Lab Results 04/13/24 04/13/24 04/13/24 Range/Units 13:44 13:44 13:44 WBC 9.7 (3.8-10.6) k/uL RBC 4.60 (3.80-5.40) m/uL Hgb 14.7 (11.4-16.0) gm/dL Hct 43.4 (34.0-46.0) % MCV 94.5 (80.0-100.0) fL MCH 32.0 (25.0-35.0) pg MCHC 33.8 (31.0-37.0) g/dL RDW 13.1 (11.5-15.5) % Plt Count 172 (150-450) k/uL MPV 7.0 Neutrophils % 56 % Lymphocytes % 36 % Monocytes % 4 % Eosinophils % 1 % Basophils % 1 % Neutrophils # 5.5 (1.3-7.7) k/uL Lymphocytes # 3.5 (1.0-4.8) k/uL Monocytes # 0.4 (0-1.0) k/uL Eosinophils # 0.1 (0-0.7) k/uL Basophils # 0.1 (0-0.2) k/uL Sodium 135 L (137-145) mmol/L Potassium 4.0 (3.5-5.1) mmol/L Chloride 105 (98-107) mmol/L Carbon Dioxide 22 (22-30) mmol/L Anion Gap 8 mmol/L BUN 35 H (7-17) mg/dL Creatinine 1.16 H (0.52-1.04) mg/dL Est GFR (CKD-EPI)AfAm 49 (>60 ml/min/1.73 sqM) Est GFR (CKD-EPI)NonAf 42 (>60 ml/min/1.73 sqM) Glucose 103 H (74-99) mg/dL Plasma Lactic Acid Srinivasa 1.5 (0.7-2.0) mmol/L Calcium 9.4 (8.4-10.2) mg/dL Magnesium 1.8 (1.6-2.3) mg/dL Total Bilirubin 0.7 (0.2-1.3) mg/dL AST 31 (14-36) U/L ALT 24 (4-34) U/L Alkaline Phosphatase 122 (38-126) U/L Total Protein 6.6 (6.3-8.2) g/dL Albumin 3.8 (3.5-5.0) g/dL Influenza Type A (PCR) (Not Detectd) Influenza Type B (PCR) (Not Detectd) RSV (PCR) (Not Detectd) SARS-CoV-2 (PCR) (Not Detectd) 04/13/24 Range/Units 13:44 WBC (3.8-10.6) k/uL RBC (3.80-5.40) m/uL Hgb (11.4-16.0) gm/dL Hct (34.0-46.0) % MCV (80.0-100.0) fL MCH (25.0-35.0) pg MCHC (31.0-37.0) g/dL RDW (11.5-15.5) % Plt Count (150-450) k/uL MPV Neutrophils % % Lymphocytes % % Monocytes % % Eosinophils % % Basophils % % Neutrophils # (1.3-7.7) k/uL Lymphocytes # (1.0-4.8) k/uL Monocytes # (0-1.0) k/uL Eosinophils # (0-0.7) k/uL Basophils # (0-0.2) k/uL Sodium (137-145) mmol/L Potassium (3.5-5.1) mmol/L Chloride (98-107) mmol/L Carbon Dioxide (22-30) mmol/L Anion Gap mmol/L BUN (7-17) mg/dL Creatinine (0.52-1.04) mg/dL Est GFR (CKD-EPI)AfAm (>60 ml/min/1.73 sqM) Est GFR (CKD-EPI)NonAf (>60 ml/min/1.73 sqM) Glucose (74-99) mg/dL Plasma Lactic Acid Srinivasa (0.7-2.0) mmol/L Calcium (8.4-10.2) mg/dL Magnesium (1.6-2.3) mg/dL Total Bilirubin (0.2-1.3) mg/dL AST (14-36) U/L ALT (4-34) U/L Alkaline Phosphatase (38-126) U/L Total Protein (6.3-8.2) g/dL Albumin (3.5-5.0) g/dL Influenza Type A (PCR) Not Detected (Not Detectd) Influenza Type B (PCR) Not Detected (Not Detectd) RSV (PCR) Not Detected (Not Detectd) SARS-CoV-2 (PCR) Not Detected (Not Detectd) - EKG Data -: EKG Interpreted by Me EKG Comments: 12-lead Electrocardiogram Interpretation Note EKG was reviewed and interpreted by myself. 12-lead ECG performed at 1318 is interpreted by me as revealing sinus rhythm with right bundle branch block at a rate of 92 beats per minute. [place] is normal. IN interval is 242 ms, QRS durations 125 ms, QTc is 428 ms.. There were no ST or T wave abnormalities to suggest myocardial ischemia or injury. R wave progression across the precordium was satisfactory. By my interpretation this EKG is non-diagnostic for acute ischemia. Disposition Clinical Impression: COPD (chronic obstructive pulmonary disease), Allergic reaction Disposition: HOME SELF-CARE Condition: Good Instructions (If sedation given, give patient instructions): COPD (Chronic Obstructive Pulmonary Disease) (ED) Additional Instructions: Monitor symptoms, return if worsening swelling or difficulty breathing. Follow up with neurologist. Prescriptions: predniSONE [Deltasone] 40 mg PO DAILY 5 Days #10 tab Famotidine 20 mg PO DAILY 21 Days #21 tab Is patient prescribed a controlled substance at d/c from ED?: No Referrals: Erich Cheema MD [Primary Care Provider] - 1-2 days Time of Disposition: 15:35
[2024-04-13 16:19] VITALS: BP 150/84; PULSE 86; RESP 18
== END 2024-04-13 17:04 | disposition home or self-care (01) ==
LOC: EC 13:02
DX: T78.40XA Allergy, unspecified, initial encounter (principal); J44.9 Chronic obstructive pulmonary disease, unspecified; F17.200 Nicotine dependence, unspecified, uncomplicated
CPT/HCPCS: 99285; 96374; 96375; 96361; 36415; 93005; 80053; 83605; 83735; 85025; 87636; 71046; J2405; J3490; J2919